=== PATIENT | male | born 1990 | race Caucasian/White ===

== ENCOUNTER 2018-01-10 14:23 | Emergency (ER) | payer OTHER ==
[~2018-01-10] VITALS: Ht 190.5 cm; Wt 77.1 kg
[~2018-01-10 14:23] MED LIST: ACET325 PO; ALBU90OI INH; ALBU90OI61 INH; AMOCLA875 PO; APIDRA; ASPI81CH PO; AZIT250 PO; Bactrim Ds Tab1 EACH PO; CEPH500 PO; Cleocin HCl150 MG PO; Cleocin HCl300 MG PO; DIPATR PO; EPIN.3I IM; FAMO40 PO; GUAI600T33 PO; HYDACE5325 PO; HYDHCL25 PO; HYDR1TAB94 PO; IBUP600 PO; INSDET100 SC; INSLI100I SC; INSLI100I SUBQ; INSLIS75I SC; INSR10I SC; INSUASPI SC; INSUASPI SUBQ; INSUL100I SC; INSULANI SC; INSULANI SUBQ; INSULANPEN; INSULANPEN SQ; METO10 PO; OXYACE5T PO; OXYC5 PO; PENVK500 PO; PRED10 PO; PROBIOTIC1 EACH PO; PSEU120ER PO; Pepcid20 MG PO; RXOXYACE PO; SULTRIDS PO; Ultram50 MG PO; Zofran Odt4 MG SL; Zofran Odt8 MG SL; [UNRECOGNIZED DRUG - OTHER] PO
[2018-01-10 15:13] LABS: BASOPHILS ABSOLUTE AUTO 0.03 K/mm3 (0.00-0.23); BASOPHILS PERCENT AUTO 0 % (0-2); EOSINOPHILS PERCENT AUTO 2 % (0-6); Hematocrit 42.4 % (37.0-53.0); Hemoglobin 13.7 g/dL (13.5-17.5); IMMATURE GRAN ABSOLUTE AUTO 0.02 K/mm3 (0.00-0.10); IMMATURE GRAN PERCENT AUTO 0 % (0-1); LYMPHOCYTES ABSOLUTE AUTO 2.62 K/mm3 (0.84-5.20); LYMPHOCYTES PERCENT AUTO 39 % (21-46); MONOCYTES PERCENT AUTO 5 % (4-13); Mean Corpuscular HGB Conc 32.3 g/dL (31.5-36.5); Mean Corpuscular Volume 87 fL (80-100); NEUTROPHILS ABSOLUTE AUTO 3.64 K/mm3 (1.96-9.15); NEUTROPHILS PERCENT AUTO 54 % (41-73); Platelet Count 320 K/mm3 (150-400); RDW Coefficient Variation 13.9 % (11.7-14.2); RDW Standard Deviation 44.2 fL (35.1-46.3); Red Blood Cell Count 4.89 M/mm3 (4.30-5.90); White Blood Cell Count 6.71 K/mm3 (4.00-11.30)
[2018-01-10 15:23] LABS: Alanine Aminotransfer (ALT/SGP 24 U/L (12-78); Albumin, Blood 3.6 g/dL (3.4-5.0); Albumin/Globulin Ratio 0.9 (0.8-1.8); Alk Phos 100 U/L (50-136); Anion Gap 7 mmol/L (6-16); Aspartate Aminotrans (AST/SGOT 15 U/L (12-37); Bilirubin, Total 0.5 mg/dL (0.1-1.0); Blood Urea Nitrogen 15 mg/dL (8-24); Bun/Creatinine Ratio 18.7 (12.0-20.0); CO2, Blood 27 mmol/L (21-32); Calcium, Blood 8.9 mg/dL (8.5-10.1); Chloride, Blood 106 mmol/L (98-108); Globulin, Blood 3.8 g/dL (2.2-4.0); Glomerular Filtration Rate >60 (60-); Glucose, Blood 261 mg/dL (70-99); Sodium, Blood 140 mmol/L (136-145); Total Protein, Blood 7.4 g/dL (6.4-8.2)
[2018-01-10] MEDS ORDERED: [UNRECOGNIZED DRUG - OTHER] SC (16:37)
== END 2018-01-10 16:49 | disposition home or self-care (01) ==
LOC: ER 14:23
PROVIDERS: Emergency Medicine
DX: E10.65 Type 1 diabetes mellitus with hyperglycemia (principal); R11.2 Nausea with vomiting, unspecified; I10 Essential (primary) hypertension; E10.43 Type 1 diabetes mellitus with diabetic autonomic (poly)neuropathy; K31.84 Gastroparesis; Z91.018 Allergy to other foods; Z88.8 Allergy status to other drugs, medicaments and biological substances; Z79.899 Other long term (current) drug therapy; Z79.82 Long term (current) use of aspirin; Z79.4 Long term (current) use of insulin; Z87.891 Personal history of nicotine dependence
CPT/HCPCS: 36415; 80053; 82947; 85025; 96361; 96374; 99283-25; J1815; J2405; J7030

== ENCOUNTER 2019-09-08 12:52 | Emergency (ER) | payer OTHER ==
[~2019-09-08] VITALS: Ht 193 cm; Wt 72.6 kg
[~2019-09-08 12:52] MED LIST changes: +COMPAZINE10 MG PO; +[UNRECOGNIZED DRUG - OTHER] SC
[2019-09-08 13:47] LABS: BASOPHILS ABSOLUTE AUTO 0.03 K/mm3 (0.00-0.23); BASOPHILS PERCENT AUTO 0 % (0-2); EOSINOPHILS ABSOLUTE AUTO 0.04 K/mm3 (0.00-0.68); EOSINOPHILS PERCENT AUTO 0 % (0-6); Hematocrit 43.6 % (37.0-53.0); Hemoglobin 14.1 g/dL (13.5-17.5); IMMATURE GRAN ABSOLUTE AUTO 0.04 K/mm3 (0.00-0.10); IMMATURE GRAN PERCENT AUTO 0 % (0-1); LYMPHOCYTES PERCENT AUTO 10 % (21-46); MONOCYTES ABSOLUTE AUTO 0.38 K/mm3 (0.16-1.47); MONOCYTES PERCENT AUTO 3 % (4-13); Mean Corpuscular HGB 28.7 pg (26.0-34.0); Mean Corpuscular HGB Conc 32.3 g/dL (31.5-36.5); Mean Corpuscular Volume 89 fL (80-100); NEUTROPHILS ABSOLUTE AUTO 10.75 K/mm3 (1.96-9.15); NEUTROPHILS PERCENT AUTO 87 % (41-73); Platelet Count 313 K/mm3 (150-400); RDW Coefficient Variation 12.9 % (11.7-14.2); RDW Standard Deviation 41.9 fL (35.1-46.3); Red Blood Cell Count 4.91 M/mm3 (4.30-5.90); White Blood Cell Count 12.44 K/mm3 (4.00-11.30)
[2019-09-08] MEDS ORDERED: BASAGLAR K100 UNIT/2 SC (13:54)
[2019-09-08 14:14] LABS: Alanine Aminotransfer (ALT/SGP 26 U/L (12-78); Albumin, Blood 4.7 g/dL (3.4-5.0); Albumin/Globulin Ratio 1.3 (0.8-1.8); Alk Phos 59 U/L (50-136); Anion Gap 11 mmol/L (6-16); Aspartate Aminotrans (AST/SGOT 24 U/L (12-37); Bilirubin, Total 0.8 mg/dL (0.1-1.0); Blood Urea Nitrogen 28 mg/dL (8-24); Bun/Creatinine Ratio 20.4 (12.0-20.0); CO2, Blood 22 mmol/L (21-32); Chloride, Blood 103 mmol/L (98-108); Creatinine, Blood 1.37 mg/dL (0.60-1.20); Globulin, Blood 3.7 g/dL (2.2-4.0); Glomerular Filtration Rate >60 (60-); Glucose, Blood 313 mg/dL (70-99); Potassium, Blood 4.2 mmol/L (3.5-5.5); Sodium, Blood 136 mmol/L (136-145); Total Protein, Blood 8.4 g/dL (6.4-8.2)
[2019-09-09] MEDS ORDERED: Pepcid20 MG PO (10:29)
[2019-09-09] MEDS ORDERED: Phenergan25 MG PR (10:29)
== END 2019-09-08 15:24 | disposition home or self-care (01) ==
LOC: ER 12:52
PROVIDERS: Physician Assistant
DX: R11.2 Nausea with vomiting, unspecified (principal); E10.43 Type 1 diabetes mellitus with diabetic autonomic (poly)neuropathy; K31.84 Gastroparesis; Z91.012 Allergy to eggs; Z91.018 Allergy to other foods; Z88.8 Allergy status to other drugs, medicaments and biological substances; Z87.891 Personal history of nicotine dependence
CPT/HCPCS: 36415; 80053; 83690; 85025; 96361; 96374; 96375; 99284-25; J0780; J1200; J7030

== ENCOUNTER 2019-09-09 05:53 | Emergency (ER) | payer OTHER ==
[~2019-09-09] VITALS: Ht 193 cm; Wt 68.0 kg
[~2019-09-09 05:53] MED LIST changes: +BASAGLAR K100 UNIT/2 SC
[2019-09-09 06:22] LABS: BASOPHILS ABSOLUTE AUTO 0.03 K/mm3 (0.00-0.23); BASOPHILS PERCENT AUTO 0 % (0-2); EOSINOPHILS PERCENT AUTO 0 % (0-6); Hematocrit 40.1 % (37.0-53.0); Hemoglobin 13.1 g/dL (13.5-17.5); IMMATURE GRAN ABSOLUTE AUTO 0.06 K/mm3 (0.00-0.10); IMMATURE GRAN PERCENT AUTO 0 % (0-1); LYMPHOCYTES ABSOLUTE AUTO 3.13 K/mm3 (0.84-5.20); LYMPHOCYTES PERCENT AUTO 19 % (21-46); MONOCYTES ABSOLUTE AUTO 1.15 K/mm3 (0.16-1.47); MONOCYTES PERCENT AUTO 7 % (4-13); Mean Corpuscular HGB 28.9 pg (26.0-34.0); Mean Corpuscular HGB Conc 32.7 g/dL (31.5-36.5); Mean Corpuscular Volume 89 fL (80-100); NEUTROPHILS ABSOLUTE AUTO 12.43 K/mm3 (1.96-9.15); NEUTROPHILS PERCENT AUTO 74 % (41-73); Platelet Count 345 K/mm3 (150-400); RDW Coefficient Variation 13.2 % (11.7-14.2); RDW Standard Deviation 42.6 fL (35.1-46.3); Red Blood Cell Count 4.53 M/mm3 (4.30-5.90)
[2019-09-09 06:41] LABS: Alanine Aminotransfer (ALT/SGP 31 U/L (12-78); Albumin, Blood 4.5 g/dL (3.4-5.0); Albumin/Globulin Ratio 1.2 (0.8-1.8); Alk Phos 55 U/L (50-136); Anion Gap 13 mmol/L (6-16); Aspartate Aminotrans (AST/SGOT 19 U/L (12-37); Bilirubin, Total 0.6 mg/dL (0.1-1.0); Blood Urea Nitrogen 36 mg/dL (8-24); Bun/Creatinine Ratio 25.5 (12.0-20.0); CO2, Blood 21 mmol/L (21-32); Calcium, Blood 9.8 mg/dL (8.5-10.1); Chloride, Blood 108 mmol/L (98-108); Creatinine, Blood 1.41 mg/dL (0.60-1.20); Globulin, Blood 3.7 g/dL (2.2-4.0); Glomerular Filtration Rate >60 (60-); Glucose, Blood 233 mg/dL (70-99); Sodium, Blood 142 mmol/L (136-145); Total Protein, Blood 8.2 g/dL (6.4-8.2)
[2019-09-09 06:48] LABS: Base Excess Venous -3.7 mmol/L; PCO2 Venous 29.3 mmHg (38-42); PO2 Venous 54.1 mmHg (38-42); pH Blood Venous 7.45 (7.34-7.37)
[2019-09-09 07:51] LABS: Source, Urine Voided
[2019-09-09 07:55] LABS: Bilirubin, Urine Neg (Neg); Blood, Urine 3+ (Neg); Glucose Qualitative, Urine 4+ (Neg); Ketones, Urine 4+ (Neg); Leukocyte Esterase, Urine Neg (Neg); Nitrite, Urine Neg (Neg); Protein, Urine 3+ (Neg); Urobilinogen, Urine NORM (Normal)
[2019-09-09 08:05] LABS: Appearance, Urine Hazy (Clear); Color, Urine Yellow (P-Yellow); White Blood Cells, Urine 0-2 /hpf (0-5)
[2019-09-09 08:06] LABS: Bacteria Few /hpf; Squamous Epithelial Cells Few /hpf (Few)
[2019-09-09 08:10] LABS: U Amphetamine Screen Not Detected; U Barbituate Screen Not Detected; U Benzodiazapine Screen Not Detected; U Buprenorphine Screen Not Detected; U Cannabinoids Screen DETECTED; U Cocaine Screen Not Detected; U Methadone Screen Not Detected; U Methamphetamine Screen Not Detected; U Opiates Screen Not Detected; U Oxycodone Screen Not Detected; U Phencyclidine Screen Not Detected; U Propoxyphene Screen Not Detected
[2019-09-09] MEDS ORDERED: Pepcid20 MG PO (10:29)
[2019-09-09] MEDS ORDERED: Phenergan25 MG PR (10:29)
[2019-09-10] MEDS ORDERED: TOPI25 PO (06:22)
[2019-09-10] MEDS ORDERED: METO10 PO (06:23)
[2019-09-10] MEDS ORDERED: OMEP20ER PO (06:24)
[2019-09-10] MEDS ORDERED: BASAGLAR K100 UNIT/2 SC (06:25)
[2019-09-10] MEDS ORDERED: INSULIN LI100 UNIT/1 (06:26)
== END 2019-09-09 10:42 | disposition home or self-care (01) ==
LOC: ER 05:53
PROVIDERS: Emergency Medicine
DX: E10.9 Type 1 diabetes mellitus without complications (principal); R11.10 Vomiting, unspecified; Z91.018 Allergy to other foods; Z91.012 Allergy to eggs; Z88.8 Allergy status to other drugs, medicaments and biological substances; I10 Essential (primary) hypertension; Z86.73 Personal history of transient ischemic attack (TIA), and cerebral infarction without residual deficits; Z87.891 Personal history of nicotine dependence
CPT/HCPCS: 36415; 71046; 80053; 81001; 82803; 82947; 83690; 85025; 87086; 96361; 96374; 96375; 96376; 99284-25; J0780; J1200; J1815; J2405; J2765; J7030

== ENCOUNTER 2019-09-10 06:03 | Emergency (ER) | payer OTHER ==
[~2019-09-10] VITALS: Ht 193 cm; Wt 70.3 kg
[~2019-09-10 06:03] MED LIST changes: +Phenergan25 MG PR
[2019-09-10] MEDS ORDERED: TOPI25 PO (06:22)
[2019-09-10] MEDS ORDERED: METO10 PO (06:23)
[2019-09-10] MEDS ORDERED: OMEP20ER PO (06:24)
[2019-09-10] MEDS ORDERED: BASAGLAR K100 UNIT/2 SC (06:25)
[2019-09-10] MEDS ORDERED: INSULIN LI100 UNIT/1 (06:26)
[2019-09-10 06:49] LABS: BASOPHILS ABSOLUTE AUTO 0.03 K/mm3 (0.00-0.23); BASOPHILS PERCENT AUTO 0 % (0-2); EOSINOPHILS PERCENT AUTO 0 % (0-6); Hematocrit 37.8 % (37.0-53.0); Hemoglobin 12.5 g/dL (13.5-17.5); IMMATURE GRAN ABSOLUTE AUTO 0.03 K/mm3 (0.00-0.10); IMMATURE GRAN PERCENT AUTO 0 % (0-1); LYMPHOCYTES ABSOLUTE AUTO 1.89 K/mm3 (0.84-5.20); LYMPHOCYTES PERCENT AUTO 15 % (21-46); MONOCYTES PERCENT AUTO 5 % (4-13); Mean Corpuscular HGB 28.9 pg (26.0-34.0); Mean Corpuscular HGB Conc 33.1 g/dL (31.5-36.5); Mean Corpuscular Volume 88 fL (80-100); Mean Platelet Volume 8.9 fL (9.1-12.4); NEUTROPHILS ABSOLUTE AUTO 9.74 K/mm3 (1.96-9.15); NEUTROPHILS PERCENT AUTO 79 % (41-73); Platelet Count 290 K/mm3 (150-400); RDW Standard Deviation 41.8 fL (35.1-46.3); Red Blood Cell Count 4.32 M/mm3 (4.30-5.90); White Blood Cell Count 12.29 K/mm3 (4.00-11.30)
[2019-09-10 06:50] LABS: Base Excess Venous -1.9 mmol/L; Bicarbonate Venous 23.4 mmol/L (24.0-30.0); PCO2 Venous 30.7 mmHg (38-42); PO2 Venous 58.8 mmHg (38-42); pH Blood Venous 7.46 (7.34-7.37)
[2019-09-10 07:21] LABS: Alanine Aminotransfer (ALT/SGP 37 U/L (12-78); Albumin/Globulin Ratio 1.3 (0.8-1.8); Alk Phos 48 U/L (50-136); Anion Gap 13 mmol/L (6-16); Aspartate Aminotrans (AST/SGOT 26 U/L (12-37); Beta-hydroxybutyrate 30.6 mg/dL (0.2-2.8); Bilirubin, Total 0.7 mg/dL (0.1-1.0); Blood Urea Nitrogen 24 mg/dL (8-24); Bun/Creatinine Ratio 20.9 (12.0-20.0); CO2, Blood 21 mmol/L (21-32); Chloride, Blood 106 mmol/L (98-108); Creatinine, Blood 1.15 mg/dL (0.60-1.20); Globulin, Blood 3.1 g/dL (2.2-4.0); Glomerular Filtration Rate >60 (60-); Glucose, Blood 231 mg/dL (70-99); Potassium, Blood 3.5 mmol/L (3.5-5.5); Sodium, Blood 140 mmol/L (136-145); Total Protein, Blood 7.1 g/dL (6.4-8.2)
== END 2019-09-10 08:47 | disposition home or self-care (01) ==
LOC: ER 06:03
PROVIDERS: Emergency Medicine
DX: R11.15 Cyclical vomiting syndrome unrelated to migraine (principal); E10.43 Type 1 diabetes mellitus with diabetic autonomic (poly)neuropathy; K31.84 Gastroparesis; I10 Essential (primary) hypertension; Z91.012 Allergy to eggs; Z91.018 Allergy to other foods; Z88.8 Allergy status to other drugs, medicaments and biological substances; Z79.899 Other long term (current) drug therapy; Z86.73 Personal history of transient ischemic attack (TIA), and cerebral infarction without residual deficits
CPT/HCPCS: 80053; 82010; 82803; 85025; 93005; 93010; 96361; 96374; 96375; 96376; 99284-25; J1200; J1630; J2405; J7030

== ENCOUNTER 2021-01-26 16:58 | Emergency (ER) | payer OTHER ==
[~2021-01-26] VITALS: Ht 193 cm; Wt 68.0 kg
[~2021-01-26 16:58] MED LIST changes: +INSULIN LI100 UNIT/1; +OMEP20ER PO; +TOPI25 PO
[2021-01-26 17:33] LABS: BASOPHILS ABSOLUTE AUTO 0.04 K/mm3 (0.00-0.23); BASOPHILS PERCENT AUTO 1 % (0-2); EOSINOPHILS PERCENT AUTO 5 % (0-6); Hematocrit 37.8 % (37.0-53.0); Hemoglobin 12.7 g/dL (13.5-17.5); IMMATURE GRAN ABSOLUTE AUTO 0.02 K/mm3 (0.00-0.10); IMMATURE GRAN PERCENT AUTO 0 % (0-1); LYMPHOCYTES ABSOLUTE AUTO 2.89 K/mm3 (0.84-5.20); LYMPHOCYTES PERCENT AUTO 34 % (21-46); MONOCYTES ABSOLUTE AUTO 0.59 K/mm3 (0.16-1.47); MONOCYTES PERCENT AUTO 7 % (4-13); Mean Corpuscular HGB 29.9 pg (26.0-34.0); Mean Corpuscular HGB Conc 33.6 g/dL (31.5-36.5); Mean Corpuscular Volume 89 fL (80-100); Mean Platelet Volume 8.3 fL (9.1-12.4); NEUTROPHILS ABSOLUTE AUTO 4.49 K/mm3 (1.96-9.15); NEUTROPHILS PERCENT AUTO 53 % (41-73); Platelet Count 302 K/mm3 (150-400); RDW Standard Deviation 42.4 fL (35.1-46.3); Red Blood Cell Count 4.25 M/mm3 (4.30-5.90); White Blood Cell Count 8.43 K/mm3 (4.00-11.30)
[2021-01-26 17:59] LABS: Alanine Aminotransfer (ALT/SGP 16 U/L (12-78); Albumin, Blood 3.6 g/dL (3.4-5.0); Albumin/Globulin Ratio 1.1 (0.8-1.8); Alk Phos 66 U/L (50-136); Anion Gap 5 mmol/L (6-16); Aspartate Aminotrans (AST/SGOT 13 U/L (12-37); Bilirubin, Total 0.3 mg/dL (0.1-1.0); Blood Urea Nitrogen 24 mg/dL (8-24); Bun/Creatinine Ratio 19.2 (12.0-20.0); CO2, Blood 26 mmol/L (21-32); Calcium, Blood 8.8 mg/dL (8.5-10.1); Chloride, Blood 111 mmol/L (98-108); Creatinine, Blood 1.25 mg/dL (0.60-1.20); Globulin, Blood 3.3 g/dL (2.2-4.0); Glomerular Filtration Rate >60 (60-); Glucose, Blood 93 mg/dL (70-99); Potassium, Blood 3.7 mmol/L (3.5-5.5); Sodium, Blood 142 mmol/L (136-145); Total Protein, Blood 6.9 g/dL (6.4-8.2)
[2021-01-26 20:37] LABS: Source, Urine Voided
[2021-01-26 20:45] LABS: Bilirubin, Urine Neg (Neg); Blood, Urine 2+ (Neg); Glucose Qualitative, Urine Neg (Neg); Ketones, Urine Neg (Neg); Leukocyte Esterase, Urine Neg (Neg); Nitrite, Urine Neg (Neg); Protein, Urine 2+ (Neg); Specific Gravity, Urine 1.025 (1.003-1.022); Urobilinogen, Urine NORM (Normal)
[2021-01-26 20:52] LABS: Appearance, Urine Clear (Clear); Color, Urine Yellow (P-Yellow)
[2021-01-26 20:55] LABS: Amorphous Light (0-Heavy); Bacteria Rare /hpf; Mucus Light (0-Heavy); Red Blood Cells, Urine 0-2 /hpf (0-2); Squamous Epithelial Cells Rare /hpf (Few); White Blood Cells, Urine Not Seen /hpf (0-5)
[2021-01-27] MEDS ORDERED: ARIPIPRAZOLE30 MG (14:44)
[2021-01-27] MEDS ORDERED: METO10SY (14:44)
[2021-01-27] MEDS ORDERED: BUPROPION HCL200 M1 (14:45)
[2021-01-27] MEDS ORDERED: ONDA4ODT (14:45)
[2021-01-27] MEDS ORDERED: BACLOFEN5 M1 (14:45)
== END 2021-01-26 21:40 | disposition home or self-care (01) ==
LOC: ER 16:58
PROVIDERS: Emergency Medicine; Physician Assistant
DX: R20.0 Anesthesia of skin (principal); R20.2 Paresthesia of skin; I10 Essential (primary) hypertension; E10.9 Type 1 diabetes mellitus without complications; Z91.012 Allergy to eggs; Z91.018 Allergy to other foods; Z88.8 Allergy status to other drugs, medicaments and biological substances; Z79.899 Other long term (current) drug therapy; Z79.4 Long term (current) use of insulin; Z86.73 Personal history of transient ischemic attack (TIA), and cerebral infarction without residual deficits
CPT/HCPCS: 70450; 80053; 81001; 82947; 85025; 99284-25

== ENCOUNTER 2021-08-03 15:01 | Emergency (ER) | payer OTHER ==
[~2021-08-03] VITALS: Ht 193 cm; Wt 67.6 kg
[~2021-08-03 15:01] MED LIST changes: +ARIPIPRAZOLE30 MG; +BACLOFEN5 M1; +BUPROPION HCL200 M1; +METO10SY; +ONDA4ODT
[2021-08-03] MEDS ORDERED: LIDO700A20 TOP (16:32)
[2021-08-03] MEDS ORDERED: Robaxin750 MG PO (16:32)
== END 2021-08-03 16:40 | disposition home or self-care (01) ==
LOC: ER 15:01
DX: M25.511 Pain in right shoulder (principal); E10.9 Type 1 diabetes mellitus without complications; I10 Essential (primary) hypertension; Z86.73 Personal history of transient ischemic attack (TIA), and cerebral infarction without residual deficits; Z91.012 Allergy to eggs; Z91.018 Allergy to other foods; Z88.8 Allergy status to other drugs, medicaments and biological substances; Z79.899 Other long term (current) drug therapy; Z79.4 Long term (current) use of insulin
CPT/HCPCS: 73030; 99283-25; A9270

== ENCOUNTER → 2021-08-18 | Outpatient (CLI) | payer OTHER ==
[~2021-08-18] MED LIST changes: +LIDO700A20 TOP; +Robaxin750 MG PO
== END | disposition home or self-care (01) ==
LOC: LAB SHORT 11:00 → LAB 11:00
DX: E10.8 Type 1 diabetes mellitus with unspecified complications (principal)
CPT/HCPCS: 82043

== ENCOUNTER → 2021-12-23 | Outpatient (CLI) | payer OTHER ==
[~2021-12-23] MED LIST changes: +DULOXETINE HCL60 M1 PO; +LISINOPRIL2.5 MG PO; +TOPI50 PO
== END | disposition home or self-care (01) ==
LOC: LAB 13:19 → LAB SHORT 13:19
DX: G40.909 Epilepsy, unspecified, not intractable, without status epilepticus (principal)
CPT/HCPCS: 80201

== ENCOUNTER 2021-12-24 16:18 | Emergency (ER) | payer OTHER ==
[~2021-12-24] VITALS: Ht 190.5 cm; Wt 69.8 kg
[~2021-12-24 16:18] MED LIST changes: -DULOXETINE HCL60 M1 PO; -LISINOPRIL2.5 MG PO; -TOPI50 PO
[2021-12-24] MEDS ORDERED: LISINOPRIL2.5 MG PO (16:35)
[2021-12-24] MEDS ORDERED: TOPI50 PO ×2 (16:36)
[2021-12-24] MEDS ORDERED: DULOXETINE HCL60 M1 PO (16:37)
[2021-12-24 16:43] LABS: BASOPHILS ABSOLUTE AUTO 0.03 K/mm3 (0.00-0.23); BASOPHILS PERCENT AUTO 0 % (0-2); EOSINOPHILS PERCENT AUTO 1 % (0-6); Hematocrit 41.2 % (37.0-53.0); Hemoglobin 13.4 g/dL (13.5-17.5); IMMATURE GRAN ABSOLUTE AUTO 0.03 K/mm3 (0.00-0.10); IMMATURE GRAN PERCENT AUTO 0 % (0-1); LYMPHOCYTES ABSOLUTE AUTO 1.84 K/mm3 (0.84-5.20); LYMPHOCYTES PERCENT AUTO 23 % (21-46); MONOCYTES ABSOLUTE AUTO 0.47 K/mm3 (0.16-1.47); MONOCYTES PERCENT AUTO 6 % (4-13); Mean Corpuscular HGB 29.4 pg (26.0-34.0); Mean Corpuscular HGB Conc 32.5 g/dL (31.5-36.5); Mean Corpuscular Volume 90 fL (80-100); Mean Platelet Volume 8.8 fL (9.1-12.4); NEUTROPHILS ABSOLUTE AUTO 5.45 K/mm3 (1.96-9.15); NEUTROPHILS PERCENT AUTO 69 % (41-73); Platelet Count 247 K/mm3 (150-400); RDW Coefficient Variation 13.3 % (11.7-14.2); RDW Standard Deviation 44.2 fL (35.1-46.3); Red Blood Cell Count 4.56 M/mm3 (4.30-5.90); White Blood Cell Count 7.92 K/mm3 (4.00-11.30)
[2021-12-24 17:12] LABS: Magnesium, Blood 1.8 mg/dL (1.6-2.4)
[2021-12-24 17:15] LABS: Albumin, Blood 4.1 g/dL (3.4-5.0); Albumin/Globulin Ratio 1.4 (0.8-1.8); Bilirubin, Total 0.5 mg/dL (0.1-1.0); Bun/Creatinine Ratio 15.2 (12.0-20.0); Calcium, Blood 9.4 mg/dL (8.5-10.1); Creatinine, Blood 1.38 mg/dL (0.60-1.20); Globulin, Blood 2.9 g/dL (2.2-4.0); Potassium, Blood 4.1 mmol/L (3.5-5.5); Thyroid Stimulating Hormone 0.878 uIU/mL (0.360-4.800)
[2021-12-24 18:14] LABS: Source, Urine Clean Catch
[2021-12-24 18:18] LABS: Bilirubin, Urine Neg (Neg); Blood, Urine Neg (Neg); Color, Urine Yellow (P-Yellow); Glucose Qualitative, Urine Neg (Neg); Ketones, Urine 2+ (Neg); Leukocyte Esterase, Urine Neg (Neg); Nitrite, Urine Neg (Neg); Protein, Urine 2+ (Neg); Specific Gravity, Urine 1.025 (1.003-1.022); Urobilinogen, Urine NORM (Normal)
[2021-12-24 19:40] LABS: U Amphetamine Screen Not Detected; U Barbituate Screen Not Detected; U Benzodiazapine Screen Not Detected; U Buprenorphine Screen Not Detected; U Cannabinoids Screen DETECTED; U Cocaine Screen Not Detected; U Methadone Screen Not Detected; U Methamphetamine Screen Not Detected; U Opiates Screen Not Detected; U Oxycodone Screen Not Detected; U Phencyclidine Screen Not Detected; U Propoxyphene Screen Not Detected
[2021-12-24 19:45] LABS: Appearance, Urine Hazy (Clear); Mucus Heavy (0-Heavy)
[2021-12-24 19:46] LABS: Bacteria Mod /hpf; Red Blood Cells, Urine 0-2 /hpf (0-2); White Blood Cells, Urine 0-2 /hpf (0-5)
[2021-12-24 19:47] LABS: Amorphous Light (0-Heavy); Calcium Oxalate Crystals Rare /hpf; Squamous Epithelial Cells Rare /hpf (Few)
== END 2021-12-24 20:26 | disposition home or self-care (01) ==
LOC: ER 16:18
PROVIDERS: Student in an Organized Health Care Education/Training Program
DX: R56.9 Unspecified convulsions (principal); R11.10 Vomiting, unspecified; E10.9 Type 1 diabetes mellitus without complications; I10 Essential (primary) hypertension; Z91.012 Allergy to eggs; Z91.018 Allergy to other foods; Z79.4 Long term (current) use of insulin; Z79.899 Other long term (current) drug therapy; Z86.73 Personal history of transient ischemic attack (TIA), and cerebral infarction without residual deficits
CPT/HCPCS: 80053; 81001; 83735; 84443; 85025; 93005; 93010; G0480

== ENCOUNTER → 2022-04-13 | Outpatient (CLI) | payer OTHER ==
[~2022-04-13] MED LIST changes: +DULOXETINE HCL60 M1 PO; +LISINOPRIL2.5 MG PO; +TOPI50 PO
== END | disposition home or self-care (01) ==
LOC: LAB SHORT 12:39
DX: L03.113 Cellulitis of right upper limb (principal)
CPT/HCPCS: 87070; 87075; 87077; 87147; 87186; 87205

== ENCOUNTER 2023-03-04 07:12 | Observation (INO) | payer OTHER ==
[~2023-03-04] VITALS: Ht 190.5 cm; Wt 75.6 kg
[~2023-03-04 07:12] MED LIST changes: +HUMALOG KW100 UNIT/1 SC; -INSULIN LI100 UNIT/1; -ONDA4ODT; +ONDA4ODT SL
[2023-03-04 07:56] LABS: BASOPHILS ABSOLUTE AUTO 0.03 K/mm3 (0.00-0.23); BASOPHILS PERCENT AUTO 0 % (0-2); EOSINOPHILS PERCENT AUTO 0 % (0-6); Hematocrit 38.9 % (37.0-53.0); Hemoglobin 13.4 g/dL (13.5-17.5); IMMATURE GRAN ABSOLUTE AUTO 0.05 K/mm3 (0.00-0.10); IMMATURE GRAN PERCENT AUTO 0 % (0-1); LYMPHOCYTES ABSOLUTE AUTO 1.71 K/mm3 (0.84-5.20); LYMPHOCYTES PERCENT AUTO 11 % (21-46); MONOCYTES ABSOLUTE AUTO 0.89 K/mm3 (0.16-1.47); MONOCYTES PERCENT AUTO 6 % (4-13); Mean Corpuscular HGB 29.8 pg (26.0-34.0); Mean Corpuscular HGB Conc 34.4 g/dL (31.5-36.5); Mean Corpuscular Volume 86 fL (80-100); Mean Platelet Volume 8.6 fL (9.1-12.4); NEUTROPHILS ABSOLUTE AUTO 12.68 K/mm3 (1.96-9.15); NEUTROPHILS PERCENT AUTO 83 % (41-73); Platelet Count 394 K/mm3 (150-400); RDW Coefficient Variation 13.1 % (11.7-14.2); White Blood Cell Count 15.36 K/mm3 (4.00-11.30)
[2023-03-04 08:17] LABS: Magnesium, Blood 2.1 mg/dL (1.6-2.4)
[2023-03-04 09:09] LABS: Alanine Aminotransfer (ALT/SGP 35 U/L (12-78); Albumin, Blood 3.9 g/dL (3.4-5.0); Alk Phos 81 U/L (50-136); Anion Gap 5 mmol/L (6-16); Aspartate Aminotrans (AST/SGOT 16 U/L (12-37); Bilirubin, Direct <0.1 mg/dL (0.0-0.3); Bilirubin, Indirect Unable to Calculate mg/dL (0.1-0.7); Bilirubin, Total 0.4 mg/dL (0.1-1.0); Blood Urea Nitrogen 42 mg/dL (8-24); Bun/Creatinine Ratio 18.8 (12.0-20.0); CO2, Blood 29 mmol/L (21-32); Calcium, Blood 9.7 mg/dL (8.5-10.1); Chloride, Blood 103 mmol/L (98-108); Creatinine, Blood 2.24 mg/dL (0.60-1.20); Globulin, Blood 3.8 g/dL (2.2-4.0); Glomerular Filtration Rate 39 (60-); Glucose, Blood 107 mg/dL (70-99); Potassium, Blood 4.5 mmol/L (3.5-5.5); Sodium, Blood 137 mmol/L (136-145); Total Protein, Blood 7.7 g/dL (6.4-8.2)
[2023-03-04 10:55] LABS: Calcium, Ionized (POC) 1.18 mmol/L (1.10-1.46); Chloride (POC) 102 mmol/L (98-108); Creatinine (POC) 2.2 mg/dL (0.8-1.3); Glucose (ISTAT POC) 192 mg/dL (70-99); Hemoglobin (POC) 12.2 g/dL (13.5-17.5); Sodium (POC) 136 mmol/L (135-148); Total CO2 (POC) 27 mmol/L (21-32)
[2023-03-04] MEDS ORDERED: MUPIROCIN2210 TOP (11:02)
[2023-03-04] MEDS ORDERED: LAMOTRIGINE100 M1 PO (11:02)
[2023-03-04] MEDS ORDERED: SULFAMETHOXAZO1 EAC1 PO (11:03)
[2023-03-04] MEDS ORDERED: CEPH500 PO (11:04)
[2023-03-04] MEDS ORDERED: OMEP20ER PO (11:05)
[2023-03-04] MEDS ORDERED: LURASIDONE HCL60 MG PO (11:05)
[2023-03-04] MEDS ORDERED: TRAZ100 PO (11:06)
[2023-03-04] MEDS ORDERED: METO5A PO (11:06)
[2023-03-04] MEDS ORDERED: EPINEPHRIN0.3 MG/0.1 IM (11:07)
[2023-03-04] MEDS ORDERED: BACL20 PO (14:56)
[2023-03-04] MEDS ORDERED: DULO30 PO (15:02)
[2023-03-04] MEDS ORDERED: TOUJEO SOL300 UNIT/2 SC (15:04)
[2023-03-04] MEDS ORDERED: ALBU90OI INH (15:12)
[2023-03-04 15:28] VITALS: BP 146/87
--- NOTE | 2023-03-04 16:00 | NUR ---
PT ARRIVED TO ROOM AT 1445. CONFLICT OCCURED BETWEEN ASSIGNED RN AND PT. THERAUPETIC COMMUNICATION PROVIDED BY THIS RN AND PT ABLE TO CALM HIMSELF AND ADMISSION WAS ABLE TO BE COMPLETED. SERVICE DOG PRESENT WITH PT REPORTING HE WILL BE PROVIDING TO DOGS PERSONAL NEEDS. INDEPENDENT IN ROOM. STATES HE VOIDED PRIOR COMING TO FLOOR. PT INSISTED HE DIDN'T WANT HIS MEDS REMOVED FROM HIS SURROUNDINGS DUE TO POTENTIAL LOSS. STATES HE HAS PHYSICAL PAIN WHEN ROUTINES ARE NOT CONSISTANT DUE TO HIS AUTISM. STATES HE SMOKES BUT DOESN'T HAVE ANY SOURCES OF IGNITION IN HIS ROOM. EXPLAINED SMOKING POLICY TO PT CLEARLY. AGREED TO ALLOW PT TO KEEP HIS MEDS IN HIS ROOM. PT REPORTED HE HAS FALLEN SEVERAL TIMES DUE TO FEELING DIZZY. ASKED IF HE WOULD PLEASE PUSH A W/C WITH HIM WHEN HE TAKES HIS DOG OUT FOR A WALK FOR SAFETY. PT AGREEABLE.
--- NOTE | 2023-03-04 19:25 | NUR ---
SHIFT SUMMARY PT HAS BEEN AGREEABLE FOR THE REMAINING DAY. DID TAKE HIS DOG OUTSIDE ONCE TODAY. CLARIFIED MEDS WITH PT, MD, AND RP TO KEEP MEDS CONSISTANT MUCH POSSIBLE. REPORT GIVEN TO ONCOMING SHIFT.
[2023-03-04 20:53] VITALS: BP 158/95
[2023-03-05 03:07] VITALS: BP 134/80
--- NOTE | 2023-03-05 05:16 | NUR ---
SHIFT SUMMARY 33 YR M ADMITTED ON 03/04/23 FOR ARF. FULL CODE. PT BECAME UPSET AT 2300 MED PASS BECAUSE HE FELT THAT ALL OF HIS MEDS HAD NOT BEEN REVIEWED AND AVAILABLE TO HIM. RN TRIED TO EXPLAIN THE MEDS TO HIM BUT HE BECAME AGITATED AND AGRESSIVELY ARGUMENTATIVE WITH HER. CHARGE NURSE WAS CALLED TO SPEAK W/ PT AND DO MED PASS AND EVENTUALLY HE CALMED DOWN AND RN WAS ABLE TO RESUME CARE. 2300 CBG WAS 44 SO PT WAS GIVEN APPLE JUICE AND PUDDING. AT 0015 CBG HAD COME UP TO 113. AT 0400 PT STATED TO RN THAT HE THOUGHT HIS BLOOD SUGAR WAS TOO HIGH BECAUSE HIS MOUTH WAS DRY. CBG DONE AND WAS LOW AT 57. APPLE JUICE AND A HALF SNADWICH WERE GIVEN AND AT 0500 CBG WAS 88. WILL CONTINUE TO MONITOR.
[2023-03-05 05:52] LABS: BASOPHILS ABSOLUTE AUTO 0.05 K/mm3 (0.00-0.23); BASOPHILS PERCENT AUTO 1 % (0-2); EOSINOPHILS ABSOLUTE AUTO 0.17 K/mm3 (0.00-0.68); EOSINOPHILS PERCENT AUTO 2 % (0-6); Hematocrit 35.6 % (37.0-53.0); Hemoglobin 11.4 g/dL (13.5-17.5); IMMATURE GRAN ABSOLUTE AUTO 0.03 K/mm3 (0.00-0.10); IMMATURE GRAN PERCENT AUTO 0 % (0-1); LYMPHOCYTES ABSOLUTE AUTO 2.79 K/mm3 (0.84-5.20); LYMPHOCYTES PERCENT AUTO 29 % (21-46); MONOCYTES ABSOLUTE AUTO 0.78 K/mm3 (0.16-1.47); MONOCYTES PERCENT AUTO 8 % (4-13); Mean Corpuscular HGB 29.3 pg (26.0-34.0); Mean Platelet Volume 8.7 fL (9.1-12.4); NEUTROPHILS ABSOLUTE AUTO 5.84 K/mm3 (1.96-9.15); NEUTROPHILS PERCENT AUTO 60 % (41-73); Platelet Count 338 K/mm3 (150-400); RDW Coefficient Variation 13.2 % (11.7-14.2); RDW Standard Deviation 43.7 fL (35.1-46.3); Red Blood Cell Count 3.89 M/mm3 (4.30-5.90); White Blood Cell Count 9.66 K/mm3 (4.00-11.30)
[2023-03-05 05:57] LABS: Mean Corpuscular Volume 92 fL (80-100)
[2023-03-05 06:20] LABS: Calcium, Blood 9.1 mg/dL (8.5-10.1); Creatinine, Blood 1.6 mg/dL (0.60-1.20); Potassium, Blood 4.3 mmol/L (3.5-5.5)
[2023-03-05 08:08] VITALS: BP 114/67
[2023-03-05] MEDS ORDERED: Acetaminophen650 M1 PO (13:15)
[2023-03-05] MEDS ORDERED: TOPI100 PO (13:16)
[2023-03-05] MEDS ORDERED: TOPI50 PO (13:16)
[2023-03-05] MEDS ORDERED: BUPR100ER PO (13:17)
[2023-03-05] MEDS ORDERED: ABILIFY MYCITE5 M2 PO (13:17)
--- NOTE | 2023-03-05 16:27 | NUR ---
PT DISCHARGED 1430 WITH DC INSTRUCTIONS, DC'D WITH DOG. AWARE HE IS TO GENERAL AGENT RX ABX AND COMPLETE ABX COARSE
== END 2023-03-05 14:30 | disposition home or self-care (01) ==
LOC: ER 07:12 → MEDS 07:13 → ENPENDDIS 03-05 11:57 → MEDS 03-05 14:30
PROVIDERS: Student in an Organized Health Care Education/Training Program; ADMIT Internal Medicine
DX: N17.9 Acute kidney failure, unspecified (principal); E10.43 Type 1 diabetes mellitus with diabetic autonomic (poly)neuropathy; E10.22 Type 1 diabetes mellitus with diabetic chronic kidney disease; I12.9 Hypertensive chronic kidney disease with stage 1 through stage 4 chronic kidney disease, or unspecified chronic kidney disease; K31.84 Gastroparesis; N18.30 Chronic kidney disease, stage 3 unspecified; F43.10 Post-traumatic stress disorder, unspecified; F32.A Depression, unspecified; G89.29 Other chronic pain; M54.40 Lumbago with sciatica, unspecified side; F12.99 Cannabis use, unspecified with unspecified cannabis-induced disorder; Z79.4 Long term (current) use of insulin
CPT/HCPCS: 36415; 51798; 80047; 80048; 80076; 82947; 83690; 83735; 85014; 85025; 93005; 93010; 94760; 96361; 96365; 96367; 96374; 96375; 96376; 99285-25; A9270; G0378; J0696; J1790; J1815; J2405; J7030; J7120

== ENCOUNTER → 2023-03-14 | Outpatient (CLI) | payer OTHER ==
[~2023-03-14] MED LIST changes: +ABILIFY MYCITE5 M2 PO; +Acetaminophen650 M1 PO; +BACL20 PO; +BUPR100ER PO; +DULO30 PO; +EPINEPHRIN0.3 MG/0.1 IM; +LAMOTRIGINE100 M1 PO; +LURASIDONE HCL60 MG PO; +METO5A PO; +MUPIROCIN2210 TOP; +SULFAMETHOXAZO1 EAC1 PO; +TOPI100 PO; +TOUJEO SOL300 UNIT/2 SC; +TRAZ100 PO
[2023-03-14 19:58] LABS: BASOPHILS ABSOLUTE AUTO 0.06 K/mm3 (0.00-0.23); BASOPHILS PERCENT AUTO 1 % (0-2); EOSINOPHILS ABSOLUTE AUTO 0.73 K/mm3 (0.00-0.68); EOSINOPHILS PERCENT AUTO 9 % (0-6); Hemoglobin 12.3 g/dL (13.5-17.5); IMMATURE GRAN ABSOLUTE AUTO 0.04 K/mm3 (0.00-0.10); IMMATURE GRAN PERCENT AUTO 1 % (0-1); LYMPHOCYTES ABSOLUTE AUTO 2.39 K/mm3 (0.84-5.20); LYMPHOCYTES PERCENT AUTO 30 % (21-46); MONOCYTES ABSOLUTE AUTO 0.53 K/mm3 (0.16-1.47); MONOCYTES PERCENT AUTO 7 % (4-13); Mean Corpuscular HGB 29.6 pg (26.0-34.0); Mean Corpuscular HGB Conc 32.4 g/dL (31.5-36.5); Mean Corpuscular Volume 92 fL (80-100); Mean Platelet Volume 8.6 fL (9.1-12.4); NEUTROPHILS PERCENT AUTO 52 % (41-73); Platelet Count 381 K/mm3 (150-400); RDW Coefficient Variation 13.4 % (11.7-14.2); RDW Standard Deviation 44.1 fL (35.1-46.3); Red Blood Cell Count 4.15 M/mm3 (4.30-5.90); White Blood Cell Count 7.85 K/mm3 (4.00-11.30)
[2023-03-14 23:35] LABS: Albumin, Blood 3.8 g/dL (3.4-5.0); Albumin/Globulin Ratio 1.1 (0.8-1.8); Bilirubin, Total 0.2 mg/dL (0.1-1.0); Bun/Creatinine Ratio 20.6 (12.0-20.0); Calcium, Blood 9.1 mg/dL (8.5-10.1); Creatinine, Blood 1.36 mg/dL (0.60-1.20); Globulin, Blood 3.4 g/dL (2.2-4.0); Potassium, Blood 4.1 mmol/L (3.5-5.5); Thyroid Stimulating Hormone 2.47 uIU/mL (0.360-4.800); Total Protein, Blood 7.2 g/dL (6.4-8.2)
[2023-03-18 11:22] LABS: HEMOGLOBIN A1C 7.6 % (4.8-5.6)
== END ==
LOC: LAB 19:43 → LAB SHORT 19:43
PROVIDERS: Family Medicine
DX: R11.2 Nausea with vomiting, unspecified (principal)
CPT/HCPCS: 80053; 84443; 85025

== ENCOUNTER 2023-03-29 12:14 | Emergency (ER) | payer OTHER ==
[~2023-03-29] VITALS: Ht 190.5 cm; Wt 77.1 kg
[2023-03-29] MEDS ORDERED: BACL20 PO (12:38)
[2023-03-29] MEDS ORDERED: INSULIN LI100 UNIT/6 SC (12:40)
[2023-03-29] MEDS ORDERED: OMEP20ER PO (12:41)
[2023-03-29] MEDS ORDERED: TRAZ100 PO (12:41)
[2023-03-29] MEDS ORDERED: METOPROLOL SUCC25 MG PO (12:42)
[2023-03-29 13:52] LABS: BASOPHILS ABSOLUTE AUTO 0.04 K/mm3 (0.00-0.23); BASOPHILS PERCENT AUTO 1 % (0-2); EOSINOPHILS ABSOLUTE AUTO 0.56 K/mm3 (0.00-0.68); EOSINOPHILS PERCENT AUTO 8 % (0-6); Hematocrit 34.7 % (37.0-53.0); Hemoglobin 11.4 g/dL (13.5-17.5); IMMATURE GRAN ABSOLUTE AUTO 0.02 K/mm3 (0.00-0.10); IMMATURE GRAN PERCENT AUTO 0 % (0-1); LYMPHOCYTES ABSOLUTE AUTO 1.21 K/mm3 (0.84-5.20); LYMPHOCYTES PERCENT AUTO 16 % (21-46); MONOCYTES ABSOLUTE AUTO 0.55 K/mm3 (0.16-1.47); MONOCYTES PERCENT AUTO 7 % (4-13); Mean Corpuscular HGB 29.9 pg (26.0-34.0); Mean Corpuscular HGB Conc 32.9 g/dL (31.5-36.5); Mean Corpuscular Volume 91 fL (80-100); Mean Platelet Volume 8.4 fL (9.1-12.4); NEUTROPHILS ABSOLUTE AUTO 5.09 K/mm3 (1.96-9.15); NEUTROPHILS PERCENT AUTO 68 % (41-73); Platelet Count 325 K/mm3 (150-400); RDW Coefficient Variation 13.7 % (11.7-14.2); RDW Standard Deviation 45.8 fL (35.1-46.3); Red Blood Cell Count 3.81 M/mm3 (4.30-5.90); White Blood Cell Count 7.47 K/mm3 (4.00-11.30)
[2023-03-29 14:07] VITALS: BP 125/86
[2023-03-29 14:20] LABS: Albumin, Blood 3.2 g/dL (3.4-5.0); Albumin/Globulin Ratio 0.9 (0.8-1.8); Bilirubin, Total 0.3 mg/dL (0.1-1.0); Bun/Creatinine Ratio 19.7 (12.0-20.0); Calcium, Blood 8.6 mg/dL (8.5-10.1); Creatinine, Blood 1.47 mg/dL (0.60-1.20); Globulin, Blood 3.4 g/dL (2.2-4.0); Potassium, Blood 4.4 mmol/L (3.5-5.5); Total Protein, Blood 6.6 g/dL (6.4-8.2)
[2023-03-29 14:21] LABS: Source, Urine Straight Cath
[2023-03-29 14:31] LABS: Appearance, Urine Clear (Clear); Bilirubin, Urine Neg (Neg); Blood, Urine 3+ (Neg); Color, Urine Yellow (P-Yellow); Glucose Qualitative, Urine 4+ (Neg); Ketones, Urine Neg (Neg); Leukocyte Esterase, Urine Neg (Neg); Nitrite, Urine Neg (Neg); Protein, Urine 3+ (Neg); Specific Gravity, Urine 1.025 (1.003-1.022); Urobilinogen, Urine NORM (Normal)
[2023-03-29 14:44] LABS: Bacteria Rare /hpf; Hyaline Casts 0-2 /lpf (0-2); Squamous Epithelial Cells Rare /hpf (Few); White Blood Cells, Urine 0-2 /hpf (0-5)
[2023-03-29 14:50] LABS: U Cannabinoids Screen DETECTED
[2023-03-29 14:53] LABS: U Amphetamine Screen Not Detected; U Barbituate Screen Not Detected; U Benzodiazapine Screen Not Detected; U Buprenorphine Screen Not Detected; U Cocaine Screen Not Detected; U Methadone Screen Not Detected; U Methamphetamine Screen Not Detected; U Opiates Screen Not Detected; U Oxycodone Screen Not Detected; U Phencyclidine Screen Not Detected
== END 2023-03-29 16:39 | disposition home or self-care (01) ==
LOC: ER 12:14
PROVIDERS: Emergency Medicine
DX: E10.649 Type 1 diabetes mellitus with hypoglycemia without coma (principal); R56.9 Unspecified convulsions; E11.43 Type 2 diabetes mellitus with diabetic autonomic (poly)neuropathy; K31.84 Gastroparesis; I10 Essential (primary) hypertension; F43.10 Post-traumatic stress disorder, unspecified; Z79.899 Other long term (current) drug therapy
CPT/HCPCS: 80053; 81001; 82947; 85025; 93005; 93010; 96374; 99285-25; J2310

== ENCOUNTER 2023-06-08 22:14 | Emergency (ER) | payer OTHER ==
[~2023-06-08] VITALS: Ht 190.5 cm; Wt 78.0 kg
[~2023-06-08 22:14] MED LIST changes: +INSULIN LI100 UNIT/6 SC; +METOPROLOL SUCC25 MG PO
[2023-06-08 22:43] LABS: BASOPHILS ABSOLUTE AUTO 0.04 K/mm3 (0.00-0.23); BASOPHILS PERCENT AUTO 1 % (0-2); EOSINOPHILS ABSOLUTE AUTO 0.48 K/mm3 (0.00-0.68); EOSINOPHILS PERCENT AUTO 6 % (0-6); Hematocrit 36.1 % (37.0-53.0); Hemoglobin 11.6 g/dL (13.5-17.5); IMMATURE GRAN ABSOLUTE AUTO 0.01 K/mm3 (0.00-0.10); IMMATURE GRAN PERCENT AUTO 0 % (0-1); LYMPHOCYTES ABSOLUTE AUTO 2.24 K/mm3 (0.84-5.20); LYMPHOCYTES PERCENT AUTO 29 % (21-46); MONOCYTES PERCENT AUTO 10 % (4-13); Mean Corpuscular HGB 29.3 pg (26.0-34.0); Mean Corpuscular HGB Conc 32.1 g/dL (31.5-36.5); Mean Corpuscular Volume 91 fL (80-100); Mean Platelet Volume 8.3 fL (9.1-12.4); NEUTROPHILS ABSOLUTE AUTO 4.28 K/mm3 (1.96-9.15); NEUTROPHILS PERCENT AUTO 55 % (41-73); Platelet Count 330 K/mm3 (150-400); RDW Coefficient Variation 13.7 % (11.7-14.2); RDW Standard Deviation 46.3 fL (35.1-46.3); Red Blood Cell Count 3.96 M/mm3 (4.30-5.90); White Blood Cell Count 7.85 K/mm3 (4.00-11.30)
[2023-06-08 23:04] LABS: Alanine Aminotransfer (ALT/SGP 18 U/L (12-78); Albumin, Blood 3.4 g/dL (3.4-5.0); Alk Phos 74 U/L (50-136); Anion Gap Unable to Calculate mmol/L (6-16); Aspartate Aminotrans (AST/SGOT 16 U/L (12-37); Bilirubin, Total 0.3 mg/dL (0.1-1.0); Blood Urea Nitrogen 22 mg/dL (8-24); Bun/Creatinine Ratio 16.3 (12.0-20.0); CO2, Blood 32 mmol/L (21-32); Calcium, Blood 9.7 mg/dL (8.5-10.1); Chloride, Blood 109 mmol/L (98-108); Creatinine, Blood 1.35 mg/dL (0.60-1.20); Globulin, Blood 3.3 g/dL (2.2-4.0); Glomerular Filtration Rate 72 (60-); Glucose, Blood 76 mg/dL (70-99); Potassium, Blood 4.2 mmol/L (3.5-5.5); Sodium, Blood 140 mmol/L (136-145); Total Protein, Blood 6.7 g/dL (6.4-8.2)
[2023-06-08 23:10] LABS: Source, Urine Clean Catch
[2023-06-08 23:14] LABS: Bilirubin, Urine Neg (Neg); Blood, Urine 5+ (Neg); Glucose Qualitative, Urine 1+ (Neg); Ketones, Urine Neg (Neg); Leukocyte Esterase, Urine 1+ (Neg); Nitrite, Urine Neg (Neg); Protein, Urine 3+ (Neg); Urobilinogen, Urine NORM (Normal)
[2023-06-08 23:23] LABS: Appearance, Urine Clear (Clear); Bacteria Not Seen /hpf; Color, Urine Yellow (P-Yellow); Squamous Epithelial Cells Not Seen /hpf (Few); White Blood Cells, Urine 0-2 /hpf (0-5)
[2023-06-08 23:30] LABS: U Amphetamine Screen Not Detected; U Barbituate Screen Not Detected; U Benzodiazapine Screen Not Detected; U Buprenorphine Screen Not Detected; U Cannabinoids Screen DETECTED; U Cocaine Screen Not Detected; U Methadone Screen Not Detected; U Methamphetamine Screen Not Detected; U Opiates Screen Not Detected; U Oxycodone Screen Not Detected; U Phencyclidine Screen Not Detected
[2023-06-08 23:34] LABS: Ethanol (Alcohol), Blood, Med <3 mg/dL
[2023-06-08 23:36] LABS: Base Excess Venous 7.1 mmol/L; Bicarbonate Venous 30.6 mmol/L (24.0-30.0); PCO2 Venous 37.7 mmHg (38-42); pH Blood Venous 7.51 (7.34-7.37)
[2023-06-08 23:36] LABS: Beta-hydroxybutyrate 0.9 mg/dL (0.2-2.8); Magnesium, Blood 2.3 mg/dL (1.6-2.4)
[2023-06-09 00:15] VITALS: BP 130/85
== END 2023-06-09 00:27 | disposition home or self-care (01) ==
LOC: ER 22:14
PROVIDERS: Emergency Medicine; Student in an Organized Health Care Education/Training Program
DX: R10.31 Right lower quadrant pain (principal); Z91.012 Allergy to eggs; Z91.018 Allergy to other foods; Z88.8 Allergy status to other drugs, medicaments and biological substances; Z79.899 Other long term (current) drug therapy; Z79.4 Long term (current) use of insulin; I10 Essential (primary) hypertension; E10.43 Type 1 diabetes mellitus with diabetic autonomic (poly)neuropathy; K31.84 Gastroparesis; F43.10 Post-traumatic stress disorder, unspecified
CPT/HCPCS: 80053; 81001; 82010; 82803; 83605; 83690; 83735; 84145; 85025; 99284

== ENCOUNTER 2023-12-03 16:20 | Emergency (ER) | payer OTHER ==
[~2023-12-03] VITALS: Ht 190.5 cm; Wt 72.6 kg
[~2023-12-03 16:20] MED LIST changes: +ACETAMINOPHEN500 M2 PO; +AMOX-CLAV 875-1 EAC5 PO; +FERSU300 PO; +HUMALOG100 UNIT/1 SC; +HYDROCODONE-AC1 EA19 PO; +LATUDA60 M1 PO; +Reglan10 MG PO; +VISBIOME 112.51 EACH PO
[2023-12-03] MEDS ORDERED: NS 1,000 ML IV SCH ×2 (17:00→20:15)
[2023-12-03] MEDS ORDERED: Ondansetron HCl 2 MG / ML 2ML Vial IV ONE ×2 (17:00→20:50)
[2023-12-03 18:24] LABS: BASOPHILS ABSOLUTE AUTO 0.06 K/mm3 (0.00-0.23); BASOPHILS PERCENT AUTO 0 % (0-2); EOSINOPHILS ABSOLUTE AUTO 0.04 K/mm3 (0.00-0.68); EOSINOPHILS PERCENT AUTO 0 % (0-6); Hematocrit 40.1 % (37.0-53.0); Hemoglobin 13.3 g/dL (13.5-17.5); IMMATURE GRAN ABSOLUTE AUTO 0.09 K/mm3 (0.00-0.10); IMMATURE GRAN PERCENT AUTO 1 % (0-1); LYMPHOCYTES ABSOLUTE AUTO 1.46 K/mm3 (0.84-5.20); LYMPHOCYTES PERCENT AUTO 10 % (21-46); MONOCYTES ABSOLUTE AUTO 0.92 K/mm3 (0.16-1.47); MONOCYTES PERCENT AUTO 6 % (4-13); Mean Corpuscular HGB 28.1 pg (26.0-34.0); Mean Corpuscular HGB Conc 33.2 g/dL (31.5-36.5); Mean Corpuscular Volume 85 fL (80-100); Mean Platelet Volume 8.7 fL (9.1-12.4); NEUTROPHILS ABSOLUTE AUTO 12.18 K/mm3 (1.96-9.15); NEUTROPHILS PERCENT AUTO 83 % (41-73); Platelet Count 309 K/mm3 (150-400); RDW Coefficient Variation 15.7 % (11.7-14.2); RDW Standard Deviation 48.7 fL (35.1-46.3); Red Blood Cell Count 4.74 M/mm3 (4.30-5.90); White Blood Cell Count 14.75 K/mm3 (4.00-11.30)
[2023-12-03 18:46] LABS: Albumin, Blood 4.3 g/dL (3.4-5.0); Albumin/Globulin Ratio 1.1 (0.8-1.8); Bilirubin, Total 0.7 mg/dL (0.1-1.0); Bun/Creatinine Ratio 18.2 (12.0-20.0); Calcium, Blood 10.8 mg/dL (8.5-10.1); Creatinine, Blood 1.65 mg/dL (0.60-1.20); Globulin, Blood 3.8 g/dL (2.2-4.0); Potassium, Blood 4.2 mmol/L (3.5-5.5); Total Protein, Blood 8.1 g/dL (6.4-8.2)
[2023-12-03 20:13] LABS: Bicarbonate Venous 24.6 mmol/L (24.0-30.0); PCO2 Venous 47.2 mmHg (38-42); pH Blood Venous 7.36 (7.34-7.37)
[2023-12-03 20:26] LABS: Source, Urine Clean Catch
[2023-12-03 20:29] LABS: Bilirubin, Urine Neg (Neg); Blood, Urine 4+ (Neg); Glucose Qualitative, Urine 3+ (Neg); Ketones, Urine 3+ (Neg); Leukocyte Esterase, Urine 1+ (Neg); Nitrite, Urine Neg (Neg); Protein, Urine 4+ (Neg); Urobilinogen, Urine NORM (Normal)
[2023-12-03 20:34] LABS: Appearance, Urine Clear (Clear); Color, Urine Yellow (P-Yellow)
[2023-12-03 20:36] LABS: Bacteria Few /hpf; Red Blood Cells, Urine 50-100 /hpf (0-2); Squamous Epithelial Cells Rare /hpf (Few)
[2023-12-03 22:22] VITALS: BP 175/88
== END 2023-12-03 22:43 | disposition home or self-care (01) ==
LOC: ER 16:20
PROVIDERS: Physician Assistant
DX: R11.2 Nausea with vomiting, unspecified (principal); R10.9 Unspecified abdominal pain; E10.43 Type 1 diabetes mellitus with diabetic autonomic (poly)neuropathy; K31.84 Gastroparesis; I10 Essential (primary) hypertension; F32.A Depression, unspecified; Z91.012 Allergy to eggs; Z91.018 Allergy to other foods; Z88.0 Allergy status to penicillin; Z88.8 Allergy status to other drugs, medicaments and biological substances; Z79.4 Long term (current) use of insulin
CPT/HCPCS: 80053; 81001; 82010; 82803; 82947; 83690; 85025; 96361; 96374; 96376; 99284-25; J2405; J7030

== ENCOUNTER 2023-12-06 00:28 | Observation (INO) | payer OTHER ==
[~2023-12-06] VITALS: Ht 190.5 cm; Wt 70.7 kg
[2023-12-06 01:10] LABS: BASOPHILS ABSOLUTE AUTO 0.04 K/mm3 (0.00-0.23); BASOPHILS PERCENT AUTO 0 % (0-2); EOSINOPHILS ABSOLUTE AUTO 0.03 K/mm3 (0.00-0.68); EOSINOPHILS PERCENT AUTO 0 % (0-6); Hematocrit 35.5 % (37.0-53.0); Hemoglobin 12.1 g/dL (13.5-17.5); IMMATURE GRAN ABSOLUTE AUTO 0.02 K/mm3 (0.00-0.10); IMMATURE GRAN PERCENT AUTO 0 % (0-1); LYMPHOCYTES ABSOLUTE AUTO 2.76 K/mm3 (0.84-5.20); LYMPHOCYTES PERCENT AUTO 24 % (21-46); MONOCYTES ABSOLUTE AUTO 1.03 K/mm3 (0.16-1.47); MONOCYTES PERCENT AUTO 9 % (4-13); Mean Corpuscular HGB Conc 34.1 g/dL (31.5-36.5); Mean Corpuscular Volume 82 fL (80-100); Mean Platelet Volume 8.3 fL (9.1-12.4); NEUTROPHILS ABSOLUTE AUTO 7.49 K/mm3 (1.96-9.15); NEUTROPHILS PERCENT AUTO 66 % (41-73); Platelet Count 305 K/mm3 (150-400); RDW Coefficient Variation 15.9 % (11.7-14.2); RDW Standard Deviation 48.5 fL (35.1-46.3); Red Blood Cell Count 4.32 M/mm3 (4.30-5.90); White Blood Cell Count 11.37 K/mm3 (4.00-11.30)
[2023-12-06 01:10] LABS: Base Excess Venous 1.7 mmol/L; Bicarbonate Venous 26.3 mmol/L (24.0-30.0); PCO2 Venous 30.7 mmHg (38-42); pH Blood Venous 7.51 (7.34-7.37)
[2023-12-06 01:46] LABS: Albumin, Blood 4.2 g/dL (3.4-5.0); Albumin/Globulin Ratio 1.1 (0.8-1.8); Beta-hydroxybutyrate 22.9 mg/dL (0.2-2.8); Bilirubin, Total 0.9 mg/dL (0.1-1.0); Bun/Creatinine Ratio 21.4 (12.0-20.0); Calcium, Blood 9.6 mg/dL (8.5-10.1); Creatinine, Blood 2.01 mg/dL (0.60-1.20); Globulin, Blood 3.7 g/dL (2.2-4.0); Phosphorus, Blood 3.4 mg/dL (2.5-4.9); Potassium, Blood 3.2 mmol/L (3.5-5.5); Total Protein, Blood 7.9 g/dL (6.4-8.2)
[2023-12-06 03:11] LABS: Source, Urine Clean Catch
[2023-12-06 03:19] LABS: Bilirubin, Urine Neg (Neg); Blood, Urine 5+ (Neg); Glucose Qualitative, Urine Neg (Neg); Ketones, Urine 3+ (Neg); Leukocyte Esterase, Urine 1+ (Neg); Nitrite, Urine Neg (Neg); Protein, Urine 4+ (Neg); Specific Gravity, Urine 1.025 (1.003-1.022); Urobilinogen, Urine NORM (Normal)
[2023-12-06 03:24] LABS: Appearance, Urine Hazy (Clear); Color, Urine Yellow (P-Yellow)
[2023-12-06 03:26] LABS: Bacteria Mod /hpf; Red Blood Cells, Urine 25-50 /hpf (0-2); Squamous Epithelial Cells Few /hpf (Few); White Blood Cells, Urine 0-2 /hpf (0-5)
[2023-12-06] MEDS ORDERED: DiphenhydrAMINE HCl 50 MG/ML 1ML Vial IV ONE (04:20)
[2023-12-06] MEDS ORDERED: NS 1,000 ML IV SCH ×3 (04:20→10:30)
[2023-12-06] MEDS ORDERED: Prochlorperazine Edisylate 10 mg Vial IV ONE (04:20)
[2023-12-06] MEDS ORDERED: Ketorolac Tromethamine 30mg Vial IV ONE (04:25)
[2023-12-06] MEDS ORDERED: Ondansetron HCl 2 MG / ML 2ML Vial IV STA (10:24)
[2023-12-06] MEDS ORDERED: Ondansetron HCl 2 MG / ML 2ML Vial IV PRN (11:00)
[2023-12-06] MEDS ORDERED: LevoFLOXacin 750 MG/D5W 150ML 150 ML IV SCH (11:00)
[2023-12-06] MEDS ORDERED: Insulin Human Lispro 100 Units/ML 3ML Syringe SC SCH ×2 (11:30→21:00)
[2023-12-06 12:31] LABS: Bun/Creatinine Ratio 22.1 (12.0-20.0); Calcium, Blood 8.5 mg/dL (8.5-10.1); Creatinine, Blood 1.95 mg/dL (0.60-1.20); Potassium, Blood 3.4 mmol/L (3.5-5.5)
[2023-12-06 12:48] VITALS: BP 135/92
[2023-12-06] MEDS ORDERED: PRAZ2 PO (12:58)
[2023-12-06] MEDS ORDERED: Potassium Chloride 20 MEQ TabCR PO ONE ×2 (13:25→21:45)
--- NOTE | 2023-12-06 14:36 | NUR ---
ADMISSION NOTE: PATIENT ARRIVED TO THE UNIT VIA GURNEY ACCOMPANIED BY HIS SERVICE DOG PANCHO. PATIENT WAS ABLE TO SELF TRANSFER TO THE BED AND EVEN TAKE HIS DOG OUTSIDE. PATIENT C/O DIZZINESS, SHAKING, NOT FEELING WELL. HE WAS SETTLED IN ROOM AND NEEDS MET. CALL MADE TO DR. TOBI ANDERSON FOR PAIN; GOT A VERBAL ORDER FOR IBUPROFEN 400 MG Q6HRS NEEDED AND HE WAS ALSO NOTIFIED OF PATIENT'S L GREAT TOE WOUND.
[2023-12-06] MEDS ORDERED: Ibuprofen 400 MG Tab PO PRN (14:40)
[2023-12-06 15:01] VITALS: BP 182/101
[2023-12-06] MEDS ORDERED: TraMADol HCl 50 MG Tab PO PRN (15:35)
--- NOTE | 2023-12-06 17:36 | NUR ---
SHIFT SUMMARY: PT IS A&OX4, INDEPENDENT, MAKES NEEDS KNOWN. HE CAN BE LABILE AT TIMES; PATIENT HAS BEEN PLEASANT AND COOPERATIVE WITH CARE WITH THIS RN. HE C/O PAIN AND NAUSEA; NO VOMITING. PATIENT REFUSES INSULIN CORRECTION IF BLOOD SUGAR IS UNDER 200. PATIENT IS CONCRETE WITH HIS DECISIONS. PATIENT'S SERVICE DOG PANCHO IS AT [facility]; DOG IS WELL BEHAVED AND PLEASANT WITH STAFF. PATIENT IN BED, CALL LIGHT WITHIN REACH, NO SIGNS OR SYMPTOMS OF DISTRESS, PLAN OF CARE ONGOING.
--- NOTE | 2023-12-06 18:05 | NUR ---
REQUEST DR. BRITTON TO REVIEW [facility] REC AND UPDATE EMAR
[2023-12-06 18:09] VITALS: BP 167/97
[2023-12-06 19:35] VITALS: BP 154/109
[2023-12-06] MEDS ORDERED: Omeprazole 20 MG CapCR PO ONE (20:10)
[2023-12-06] MEDS ORDERED: OxyCODONE HCL 5 MG TAB PO PRN ×2 (20:25→21:45)
[2023-12-06] MEDS ORDERED: Acetaminophen 500 MG Tab PO PRN (20:50)
[2023-12-06] MEDS ORDERED: Omeprazole 20 MG CapCR PO PRN (20:50)
[2023-12-06] MEDS ORDERED: Prazosin HCL 5 MG Cap PO SCH (21:00)
[2023-12-06] MEDS ORDERED: LamoTRIgine 100 MG Tab PO SCH (21:00)
[2023-12-06] MEDS ORDERED: DULoxetine HCL 60 MG Capsule DR PO SCH (21:00)
[2023-12-06] MEDS ORDERED: TraZODone HCl 50 MG Tab PO SCH (21:00)
[2023-12-06] MEDS ORDERED: Baclofen 10 MG Tab PO SCH (21:00)
[2023-12-06] MEDS ORDERED: Ferrous Sulfate 325 MG Tab PO SCH (21:00)
[2023-12-06] MEDS ORDERED: Insulin Glargine-Yfgn 100 Unit/mL 3 ML SYR SC SCH (21:00)
[2023-12-06] MEDS ORDERED: Metoclopramide HCl 10 MG Tab PO SCH (21:00)
[2023-12-06] MEDS ORDERED: Lactated Ringer's 1,000 ML IV ONE (21:15)
--- NOTE | 2023-12-06 21:28 | NUR ---
CALL FROM SAIMA PENNINGTON, PHARMCIST: PATIENT'S MED LIST STATES PRAZOSIN 20mg BUT THIS IS TYPICALLY DISPENSED AND ADMINISTERED IN 2MG INCRIMENTS. UPON REVIEW OF PATIENT'S MED CLAIM Hx, IT APPEARS HE IS ON 2mg. CALL TO PRIMARY RN: STATES THIS MED WAS ADDED TO MED LIST PER PATIENT REPORT. PHARMACIST NOTIFIED THIS IS LIKELY AN ERROR ON PT BEHALF IT APPEARS PT TAKES 2MG NOT 20MG. SAIMA WILL SEND OUT 2MG TABLET.
[2023-12-06] MEDS ORDERED: Prochlorperazine Edisylate 10 mg Vial IV PRN (21:30)
[2023-12-06] MEDS ORDERED: Acetaminophen 325 MG TABLET PO PRN (21:50)
[2023-12-06] MEDS ORDERED: Morphine Sulfate 4 MG/1 ML Injection IV PRN (21:50)
[2023-12-06] MEDS ORDERED: Metoclopramide HCl 5MG / ML 2ML Vial IV PRN (21:50)
[2023-12-06] MEDS ORDERED: Prazosin HCl 1 MG Cap PO SCH (22:00)
[2023-12-06] MEDS ORDERED: LURASIDONE 60 MG TAB PO SCH (22:00)
[2023-12-06] MEDS ORDERED: Lactated Ringer's 1,000 ML IV SCH (22:30)
[2023-12-07 02:36] VITALS: BP 141/85
[2023-12-07 05:37] LABS: Bun/Creatinine Ratio 21.1 (12.0-20.0); Calcium, Blood 8.3 mg/dL (8.5-10.1); Creatinine, Blood 1.66 mg/dL (0.60-1.20); Potassium, Blood 3.7 mmol/L (3.5-5.5)
[2023-12-07] MEDS ORDERED: Omeprazole 20 MG CapCR PO SCH (06:00)
--- NOTE | 2023-12-07 06:19 | NUR ---
PAIN MANAGED WITH PRN MEDS. 1L LR BOLUS ADMINISTERED, SECOND BAG RAN AT 200/HR, THIRD BAG ONGOING. COMPLAINTS OF NAUSEA - PRN MEDS ADMINISTERED. PT DISRESPECTFUL TO STAFF - PARTICULARLY TO NURSING ASSISTANTS EASILY ANGERED FOR MINOR INCONVENIENCES, REMINDED TO BE RESPECTFUL BUT BEHAVIOR CONTINUED. BISQUE KILN PLACER RELIEVED OF ROOM DUE TO BEHAVIOR. PT FELT OFF, BLOOD SUGAR WAS CHECKED, CBG 57. SNACKS PROVIDED AND RECHECKED, CBG 82.
[2023-12-07 07:59] VITALS: BP 131/73
[2023-12-07] MEDS ORDERED: Enoxaparin 40 MG/0.4 ML SYR SC SCH (09:00)
[2023-12-07] MEDS ORDERED: DULoxetine HCL 30 MG Cap DR PO SCH (09:00)
[2023-12-07] MEDS ORDERED: SULTRIDS PO (14:27)
[2023-12-07] MEDS ORDERED: PROM25 PO (14:27)
--- NOTE | 2023-12-07 16:05 | NUR ---
DISCHARGE NOTE: DISCHARGE WENT OVER WITH PATIENT. PATIENT GOT DRESSED, COLLECTED BELONGINGS, AND HIM AND HIS SERVICE DOG PANCHO WALKED DOWN TO THE [facility] WHERE HIS RIDE WAS SET UP AT 1600. IV WAS REMOVED. NO SIGNS OR SYMPTOMS OF DISTRESS DURING DISCHARGE. PATIENT'S BLOOD SUGAR STABLE THIS AFTERNOON.
== END 2023-12-07 16:00 | disposition home or self-care (01) ==
LOC: ER 00:28 → MEDS 00:29 → ERHOLD 00:29 → MEDS 12:36
PROVIDERS: Internal Medicine; Student in an Organized Health Care Education/Training Program; ADMIT Family Medicine
DX: E10.10 Type 1 diabetes mellitus with ketoacidosis without coma (principal); E10.22 Type 1 diabetes mellitus with diabetic chronic kidney disease; I12.9 Hypertensive chronic kidney disease with stage 1 through stage 4 chronic kidney disease, or unspecified chronic kidney disease; N18.30 Chronic kidney disease, stage 3 unspecified; Z79.4 Long term (current) use of insulin; E86.0 Dehydration; F31.9 Bipolar disorder, unspecified; K21.9 Gastro-esophageal reflux disease without esophagitis; E87.6 Hypokalemia; G47.00 Insomnia, unspecified; N17.9 Acute kidney failure, unspecified; Z79.899 Other long term (current) drug therapy; Z88.0 Allergy status to penicillin; Z88.5 Allergy status to narcotic agent; Z91.010 Allergy to peanuts; Z91.012 Allergy to eggs; Z86.73 Personal history of transient ischemic attack (TIA), and cerebral infarction without residual deficits; E10.43 Type 1 diabetes mellitus with diabetic autonomic (poly)neuropathy; K31.84 Gastroparesis; H54.7 Unspecified visual loss; F43.10 Post-traumatic stress disorder, unspecified
CPT/HCPCS: 36415; 71045; 80048; 80053; 81001; 82010; 82803; 82947; 83690; 83735; 84100; 85025; 87086; 93005; 93010; 96365; 96366; 96375; 96376; 99285-25; A9270; G0378; J0780; J1200; J1815; J1885; J1956; J2405; J7030; J7120

== ENCOUNTER 2024-06-17 00:30 | Day surgery (SDC) | payer OTHER ==
[~2024-06-17 00:30] MED LIST changes: +PRAZ2 PO; +PROM25 PO
[2024-06-17] MEDS ORDERED: Cosyntropin 0.25 MG / ML 1ML Vial IV ONE (07:00)
[2024-06-17 08:30] VITALS: BP 126/89
--- NOTE | 2024-06-17 09:06 | NUR ---
30 MIN LAB DRAWN FROM IV PER PROTOCOL
== END 2024-06-17 09:45 | disposition home or self-care (01) ==
LOC: ATC 00:30
DX: I47.9 Paroxysmal tachycardia, unspecified (principal); I95.1 Orthostatic hypotension; E10.22 Type 1 diabetes mellitus with diabetic chronic kidney disease; N18.9 Chronic kidney disease, unspecified; Z88.7 Allergy status to serum and vaccine; Z79.4 Long term (current) use of insulin; Z79.899 Other long term (current) drug therapy
CPT/HCPCS: 80400; 82533; 96374; J0834

== ENCOUNTER → 2024-07-02 | Outpatient (CLI) | payer OTHER ==
[2024-07-03 12:18] LABS: IMMATURE RETIC FRACTION 7.8 % (2.3-16.0); RETIC HGB EQUIVALENT 33.6 pg (28.20-36.60); RETICULOCYTE COUNT PERCENT 1.49 % (0.50-2.50)
[2024-07-03 12:34] LABS: Albumin, Blood 4.3 g/dL (3.4-5.0); Albumin/Globulin Ratio 1.3 (0.8-1.8); Bilirubin, Total 0.4 mg/dL (0.1-1.0); Bun/Creatinine Ratio 14.1 (12.0-20.0); Creatinine, Blood 1.92 mg/dL (0.60-1.20); Globulin, Blood 3.4 g/dL (2.2-4.0); Percent Saturation 33.4 % (20.0-50.0); Total Protein, Blood 7.7 g/dL (6.4-8.2)
== END | disposition home or self-care (01) ==
LOC: LAB 15:55 → LAB SHORT 15:55
PROVIDERS: Family Medicine
DX: E10.21 Type 1 diabetes mellitus with diabetic nephropathy (principal); D50.9 Iron deficiency anemia, unspecified
CPT/HCPCS: 80053; 82728; 83540; 83550; 85045

== ENCOUNTER → 2024-07-02 | Outpatient (CLI) | payer OTHER | LOC: LAB SHORT 17:25 → LAB 17:25 | DX: E10.21 Type 1 diabetes mellitus with diabetic nephropathy (principal) | CPT/HCPCS: 82043 ==

== ENCOUNTER 2024-10-22 12:34 | Emergency (ER) | payer OTHER ==
[~2024-10-22] VITALS: Ht 172.7 cm; Wt 68.0 kg
[2024-10-22 13:00] LABS: pH Blood Venous 7.56 (7.34-7.37)
[2024-10-22] MEDS ORDERED: Haloperidol Lactate Inj. 5 MG/ML Injection IV ONE ×2 (13:00→16:00)
[2024-10-22 13:10] LABS: BASOPHILS ABSOLUTE AUTO 0.05 K/mm3 (0.00-0.23); BASOPHILS PERCENT AUTO 1 % (0-2); EOSINOPHILS ABSOLUTE AUTO 0.12 K/mm3 (0.00-0.68); EOSINOPHILS PERCENT AUTO 1 % (0-6); Hematocrit 36.9 % (37.0-53.0); Hemoglobin 12.4 g/dL (13.5-17.5); IMMATURE GRAN ABSOLUTE AUTO 0.03 K/mm3 (0.00-0.10); IMMATURE GRAN PERCENT AUTO 0 % (0-1); LYMPHOCYTES ABSOLUTE AUTO 2.14 K/mm3 (0.84-5.20); LYMPHOCYTES PERCENT AUTO 22 % (21-46); MONOCYTES ABSOLUTE AUTO 0.38 K/mm3 (0.16-1.47); MONOCYTES PERCENT AUTO 4 % (4-13); Mean Corpuscular HGB Conc 33.6 g/dL (31.5-36.5); Mean Corpuscular Volume 87 fL (80-100); NEUTROPHILS ABSOLUTE AUTO 7.08 K/mm3 (1.96-9.15); NEUTROPHILS PERCENT AUTO 72 % (41-73); NRBC ABSOLUTE 0.00 K/mm3 (0.00-0.02); NRBC Auto 0.0 /100 WBC (0.0-0.2); Platelet Count 356 K/mm3 (150-400); RDW Coefficient Variation 13.2 % (11.7-14.2); RDW Standard Deviation 41.6 fL (35.1-46.3)
[2024-10-22 13:49] LABS: Alanine Aminotransfer (ALT/SGP 49.0 U/L (12-78); Albumin, Blood 4.2 g/dL (3.4-5.0); Albumin/Globulin Ratio 1.2 (0.8-1.8); Anion Gap 11.0 mmol/L (3-11); Aspartate Aminotrans (AST/SGOT 27.0 U/L (12-37); Bilirubin, Total 0.5 mg/dL (0.1-1.0); Blood Urea Nitrogen 23.0 mg/dL (8-24); CO2, Blood 26.0 mmol/L (21-32); Calcium, Blood 9.9 mg/dL (8.5-10.1); Chloride, Blood 103.0 mmol/L (98-108); Creatinine, Blood 1.82 mg/dL (0.60-1.20); Globulin, Blood 3.5 g/dL (2.2-4.0); Glucose, Blood 195.0 mg/dL (70-99); Potassium, Blood 4.1 mmol/L (3.5-5.5); Sodium, Blood 136.0 mmol/L (136-145); Total Protein, Blood 7.7 g/dL (6.4-8.2)
[2024-10-22] MEDS ORDERED: NS 1,000 ML IV SCH (14:00)
[2024-10-22 15:30] LABS: Source, Urine Clean Catch
[2024-10-22 15:35] LABS: Bilirubin, Urine Neg (Neg); Color, Urine Yellow (P-Yellow); Glucose Qualitative, Urine 4+ (Neg); Ketones, Urine 4+ (Neg); Leukocyte Esterase, Urine 1+ (Neg); Protein, Urine 4+ (Neg); Specific Gravity, Urine 1.010 (1.003-1.022); Urobilinogen, Urine NORM (Normal)
[2024-10-22] MEDS ORDERED: Insulin Regular 100 Unit/ML 1ML Dose IV ONE (15:45)
[2024-10-22] MEDS ORDERED: CEPH500 PO (16:39)
[2024-10-22 16:45] VITALS: BP 128/73
[2024-10-22 17:28] LABS: U Amphetamine Screen Not Detected; U Barbituate Screen Not Detected; U Benzodiazapine Screen Not Detected; U Buprenorphine Screen Not Detected; U Cannabinoids Screen DETECTED; U Cocaine Screen Not Detected; U Methadone Screen Not Detected; U Methamphetamine Screen Not Detected; U Opiates Screen Not Detected; U Oxycodone Screen Not Detected; U Phencyclidine Screen Not Detected
[2024-10-23] MEDS ORDERED: PROMETHAZINE12.5 M1 PO (07:58)
== END 2024-10-22 17:20 | disposition home or self-care (01) ==
LOC: ER 12:34
PROVIDERS: Emergency Medicine; Student in an Organized Health Care Education/Training Program
DX: R11.2 Nausea with vomiting, unspecified (principal); F12.90 Cannabis use, unspecified, uncomplicated; E10.43 Type 1 diabetes mellitus with diabetic autonomic (poly)neuropathy; K31.84 Gastroparesis; N39.0 Urinary tract infection, site not specified; I12.9 Hypertensive chronic kidney disease with stage 1 through stage 4 chronic kidney disease, or unspecified chronic kidney disease; E10.22 Type 1 diabetes mellitus with diabetic chronic kidney disease; N18.30 Chronic kidney disease, stage 3 unspecified; Z91.012 Allergy to eggs; Z88.0 Allergy status to penicillin; Z88.8 Allergy status to other drugs, medicaments and biological substances; Z91.018 Allergy to other foods; Z79.899 Other long term (current) drug therapy; Z79.4 Long term (current) use of insulin
CPT/HCPCS: 80053; 81001; 82010; 82803; 82947; 85025; 87086; 96361; 96374; 96376; 99284-25; A9270; J1630; J1790; J1815; J7030

== ENCOUNTER 2024-10-23 06:08 | Emergency (ER) | payer OTHER ==
[~2024-10-23] VITALS: Ht 188 cm; Wt 72.6 kg
[2024-10-23] MEDS ORDERED: CefTRIAXone Sodium 1,000 MG in NS 100 ML IV ONE (06:25)
[2024-10-23] MEDS ORDERED: NS 1,000 ML IV SCH (06:25)
[2024-10-23 06:28] LABS: BASOPHILS ABSOLUTE AUTO 0.04 K/mm3 (0.00-0.23); BASOPHILS PERCENT AUTO 0 % (0-2); EOSINOPHILS ABSOLUTE AUTO 0.09 K/mm3 (0.00-0.68); EOSINOPHILS PERCENT AUTO 1 % (0-6); Hematocrit 33.6 % (37.0-53.0); Hemoglobin 11.3 g/dL (13.5-17.5); IMMATURE GRAN ABSOLUTE AUTO 0.02 K/mm3 (0.00-0.10); IMMATURE GRAN PERCENT AUTO 0 % (0-1); LYMPHOCYTES ABSOLUTE AUTO 3.42 K/mm3 (0.84-5.20); LYMPHOCYTES PERCENT AUTO 35 % (21-46); MONOCYTES ABSOLUTE AUTO 0.66 K/mm3 (0.16-1.47); MONOCYTES PERCENT AUTO 7 % (4-13); Mean Corpuscular HGB Conc 33.6 g/dL (31.5-36.5); Mean Corpuscular Volume 88 fL (80-100); NEUTROPHILS ABSOLUTE AUTO 5.48 K/mm3 (1.96-9.15); NEUTROPHILS PERCENT AUTO 57 % (41-73); NRBC ABSOLUTE 0.00 K/mm3 (0.00-0.02); NRBC Auto 0.0 /100 WBC (0.0-0.2); Platelet Count 295 K/mm3 (150-400); RDW Coefficient Variation 13.8 % (11.7-14.2); RDW Standard Deviation 44.4 fL (35.1-46.3)
[2024-10-23 06:57] LABS: pH Blood Venous 7.60 (7.34-7.37)
[2024-10-23 06:58] LABS: Alanine Aminotransfer (ALT/SGP 36.0 U/L (12-78); Albumin, Blood 3.8 g/dL (3.4-5.0); Albumin/Globulin Ratio 1.2 (0.8-1.8); Anion Gap 8.0 mmol/L (3-11); Aspartate Aminotrans (AST/SGOT 17.0 U/L (12-37); Bilirubin, Total 0.4 mg/dL (0.1-1.0); Blood Urea Nitrogen 24.0 mg/dL (8-24); CO2, Blood 28.0 mmol/L (21-32); Calcium, Blood 9.0 mg/dL (8.5-10.1); Chloride, Blood 104.0 mmol/L (98-108); Creatinine, Blood 1.8 mg/dL (0.60-1.20); Globulin, Blood 3.3 g/dL (2.2-4.0); Glucose, Blood 242.0 mg/dL (70-99); Potassium, Blood 3.8 mmol/L (3.5-5.5); Sodium, Blood 136.0 mmol/L (136-145); Total Protein, Blood 7.1 g/dL (6.4-8.2)
[2024-10-23] MEDS ORDERED: Metoclopramide HCl 5MG / ML 2ML Vial IV ONE (07:15)
[2024-10-23 07:53] LABS: pH Blood Venous 7.50 (7.34-7.37)
[2024-10-23] MEDS ORDERED: PROMETHAZINE12.5 M1 PO (07:58)
[2024-10-23] MEDS ORDERED: Ondansetron 4 MG SoluTab SL ONE (08:40)
[2024-10-23] MEDS ORDERED: Insulin Regular 100 Unit/ML 1ML Dose SC ONE (08:40)
[2024-10-23 09:38] VITALS: BP 143/73
[2024-10-24] MEDS ORDERED: REGLAN1013 PO (01:28)
[2024-10-24] MEDS ORDERED: Adderall Xr 5 MG5 MG PO (01:29)
[2024-10-24] MEDS ORDERED: QUETIAPINE FUMA5012 PO (01:30)
== END 2024-10-23 09:42 | disposition home or self-care (01) ==
LOC: ER 06:08
PROVIDERS: Emergency Medicine
DX: E10.43 Type 1 diabetes mellitus with diabetic autonomic (poly)neuropathy (principal); K31.84 Gastroparesis; I12.9 Hypertensive chronic kidney disease with stage 1 through stage 4 chronic kidney disease, or unspecified chronic kidney disease; E10.22 Type 1 diabetes mellitus with diabetic chronic kidney disease; N18.30 Chronic kidney disease, stage 3 unspecified; F43.10 Post-traumatic stress disorder, unspecified; E86.0 Dehydration
CPT/HCPCS: 80053; 82803; 82947; 85025; 93005; 93010; A9270; J0696; J1815; J2765; J7030

== ENCOUNTER 2024-10-23 20:40 | Inpatient (IN) | payer OTHER ==
[~2024-10-23] VITALS: Ht 188 cm; Wt 70.0 kg
[~2024-10-23 20:40] MED LIST changes: +PROMETHAZINE12.5 M1 PO
[2024-10-23] MEDS ORDERED: NS 1,000 ML IV SCH ×2 (21:25→23:05)
[2024-10-23] MEDS ORDERED: Ondansetron HCl 2 MG / ML 2ML Vial IV ONE (21:25)
[2024-10-23 21:45] LABS: BASOPHILS ABSOLUTE AUTO 0.02 K/mm3 (0.00-0.23); BASOPHILS PERCENT AUTO 0 % (0-2); EOSINOPHILS ABSOLUTE AUTO 0.04 K/mm3 (0.00-0.68); EOSINOPHILS PERCENT AUTO 0 % (0-6); Hematocrit 33.0 % (37.0-53.0); Hemoglobin 11.3 g/dL (13.5-17.5); IMMATURE GRAN ABSOLUTE AUTO 0.03 K/mm3 (0.00-0.10); IMMATURE GRAN PERCENT AUTO 0 % (0-1); LYMPHOCYTES ABSOLUTE AUTO 1.15 K/mm3 (0.84-5.20); LYMPHOCYTES PERCENT AUTO 9 % (21-46); MONOCYTES ABSOLUTE AUTO 0.27 K/mm3 (0.16-1.47); MONOCYTES PERCENT AUTO 2 % (4-13); Mean Corpuscular HGB Conc 34.2 g/dL (31.5-36.5); Mean Corpuscular Volume 88 fL (80-100); NEUTROPHILS ABSOLUTE AUTO 11.24 K/mm3 (1.96-9.15); NEUTROPHILS PERCENT AUTO 88 % (41-73); NRBC ABSOLUTE 0.00 K/mm3 (0.00-0.02); NRBC Auto 0.0 /100 WBC (0.0-0.2); Platelet Count 343 K/mm3 (150-400); RDW Coefficient Variation 13.6 % (11.7-14.2); RDW Standard Deviation 43.7 fL (35.1-46.3)
[2024-10-23 21:46] LABS: pH Blood Venous 7.50 (7.34-7.37)
[2024-10-23 22:09] LABS: Alanine Aminotransfer (ALT/SGP 32.0 U/L (12-78); Albumin, Blood 3.8 g/dL (3.4-5.0); Albumin/Globulin Ratio 1.1 (0.8-1.8); Anion Gap 14.0 mmol/L (3-11); Aspartate Aminotrans (AST/SGOT 29.0 U/L (12-37); Bilirubin, Total 0.8 mg/dL (0.1-1.0); Blood Urea Nitrogen 23.0 mg/dL (8-24); CO2, Blood 24.0 mmol/L (21-32); Calcium, Blood 9.4 mg/dL (8.5-10.1); Chloride, Blood 102.0 mmol/L (98-108); Creatinine, Blood 1.7 mg/dL (0.60-1.20); Globulin, Blood 3.4 g/dL (2.2-4.0); Glucose, Blood 284.0 mg/dL (70-99); Potassium, Blood 4.7 mmol/L (3.5-5.5); Sodium, Blood 135.0 mmol/L (136-145); Total Protein, Blood 7.2 g/dL (6.4-8.2)
[2024-10-23] MEDS ORDERED: Haloperidol Lactate Inj. 5 MG/ML Injection IV ONE (22:50)
[2024-10-23] MEDS ORDERED: Metoclopramide HCl 5MG / ML 2ML Vial IV PRN (23:00)
[2024-10-23] MEDS ORDERED: Enoxaparin 40 MG/0.4 ML SYR SC SCH (23:00)
[2024-10-23] MEDS ORDERED: Ondansetron HCl 2 MG / ML 2ML Vial IV PRN (23:05)
[2024-10-23] MEDS ORDERED: FentaNYL Citrate 50 MCG/ML 2 ML Injection IV PRN (23:05)
[2024-10-24] MEDS ORDERED: REGLAN1013 PO (01:28)
[2024-10-24] MEDS ORDERED: Adderall Xr 5 MG5 MG PO (01:29)
[2024-10-24] MEDS ORDERED: QUETIAPINE FUMA5012 PO (01:30)
[2024-10-24] MEDS ORDERED: Insulin Glargine-Yfgn 100 Unit/mL 3 ML SYR SC ONE (03:00)
[2024-10-24 04:30] LABS: BASOPHILS ABSOLUTE AUTO 0.02 K/mm3 (0.00-0.23); BASOPHILS PERCENT AUTO 0 % (0-2); EOSINOPHILS ABSOLUTE AUTO 0.01 K/mm3 (0.00-0.68); EOSINOPHILS PERCENT AUTO 0 % (0-6); Hematocrit 32.0 % (37.0-53.0); Hemoglobin 10.5 g/dL (13.5-17.5); IMMATURE GRAN ABSOLUTE AUTO 0.05 K/mm3 (0.00-0.10); IMMATURE GRAN PERCENT AUTO 0 % (0-1); LYMPHOCYTES ABSOLUTE AUTO 1.54 K/mm3 (0.84-5.20); LYMPHOCYTES PERCENT AUTO 12 % (21-46); MONOCYTES ABSOLUTE AUTO 0.24 K/mm3 (0.16-1.47); MONOCYTES PERCENT AUTO 2 % (4-13); Mean Corpuscular HGB Conc 32.8 g/dL (31.5-36.5); Mean Corpuscular Volume 89 fL (80-100); NEUTROPHILS ABSOLUTE AUTO 11.20 K/mm3 (1.96-9.15); NEUTROPHILS PERCENT AUTO 86 % (41-73); NRBC ABSOLUTE 0.00 K/mm3 (0.00-0.02); NRBC Auto 0.0 /100 WBC (0.0-0.2); Platelet Count 289 K/mm3 (150-400); RDW Coefficient Variation 13.7 % (11.7-14.2); RDW Standard Deviation 44.9 fL (35.1-46.3)
[2024-10-24 05:13] LABS: Alanine Aminotransfer (ALT/SGP 28.0 U/L (12-78); Albumin, Blood 3.8 g/dL (3.4-5.0); Albumin/Globulin Ratio 1.3 (0.8-1.8); Anion Gap 15.0 mmol/L (3-11); Aspartate Aminotrans (AST/SGOT 14.0 U/L (12-37); Bilirubin, Total 0.7 mg/dL (0.1-1.0); Blood Urea Nitrogen 25.0 mg/dL (8-24); CO2, Blood 21.0 mmol/L (21-32); Calcium, Blood 8.8 mg/dL (8.5-10.1); Chloride, Blood 103.0 mmol/L (98-108); Creatinine, Blood 1.76 mg/dL (0.60-1.20); Globulin, Blood 3.0 g/dL (2.2-4.0); Glucose, Blood 397.0 mg/dL (70-99); Potassium, Blood 4.2 mmol/L (3.5-5.5); Sodium, Blood 135.0 mmol/L (136-145); Total Protein, Blood 6.8 g/dL (6.4-8.2)
[2024-10-24 05:42] VITALS: BP 168/106
[2024-10-24] MEDS ORDERED: Pantoprazole Sodium 40 MG Injection IV SCH (06:00)
[2024-10-24 06:23] LABS: Source, Urine Clean Catch
[2024-10-24 06:28] LABS: Bilirubin, Urine Neg (Neg); Color, Urine Yellow (P-Yellow); Glucose Qualitative, Urine 4+ (Neg); Ketones, Urine 4+ (Neg); Leukocyte Esterase, Urine Neg (Neg); Protein, Urine 3+ (Neg); Specific Gravity, Urine 1.025 (1.003-1.022); Urobilinogen, Urine NORM (Normal)
--- NOTE | 2024-10-24 06:47 | NUR ---
PATIENT ARRIVED ON UNIT DURING SHIFT. PATIENT ALERT AND ORIENED X4. PATIENT ON ROOM AIR. PATIENT NAUSEOUS UPON ARRIVING. NOTIFIED AND ORDER PHENERGAN SUPP. PT REFUSED SUPPOSITORY. NS RUNNING AT 100 ML/HR. PATIENT IS NPO. UP TO BATHROOM INDEPENDENTLY. ORIENTED TO OWN ABILITY. BED IN LOW POSITION. CALL LIGHT WITHIN REACH
[2024-10-24 07:16] LABS: White Blood Cells, Urine 0-2 /hpf (0-5)
[2024-10-24] MEDS ORDERED: Insulin Human Lispro 100 Units/ML 3ML Syringe SC SCH ×2 (07:30→20:00)
[2024-10-24] MEDS ORDERED: Insulin Human Lispro 100 Units/ML 3ML Syringe SC STA (07:33)
[2024-10-24 07:38] VITALS: BP 167/82
[2024-10-24] MEDS ORDERED: Insulin Glargine-Yfgn 100 Unit/mL 3 ML SYR SC SCH ×3 (09:00→21:00)
[2024-10-24 09:24] LABS: Anion Gap 14.0 mmol/L (3-11); Blood Urea Nitrogen 26.0 mg/dL (8-24); CO2, Blood 24.0 mmol/L (21-32); Calcium, Blood 8.9 mg/dL (8.5-10.1); Chloride, Blood 103.0 mmol/L (98-108); Creatinine, Blood 1.74 mg/dL (0.60-1.20); Glucose, Blood 318.0 mg/dL (70-99); Potassium, Blood 3.5 mmol/L (3.5-5.5); Sodium, Blood 137.0 mmol/L (136-145)
[2024-10-24] MEDS ORDERED: NS 1,000 ML IV SCH (10:00)
[2024-10-24 11:11] VITALS: BP 131/77
[2024-10-24 15:09] VITALS: BP 156/95
[2024-10-24 16:14] LABS: Anion Gap 6.0 mmol/L (3-11); Blood Urea Nitrogen 24.0 mg/dL (8-24); CO2, Blood 29.0 mmol/L (21-32); Calcium, Blood 9.1 mg/dL (8.5-10.1); Chloride, Blood 106.0 mmol/L (98-108); Creatinine, Blood 1.61 mg/dL (0.60-1.20); Glucose, Blood 192.0 mg/dL (70-99); Potassium, Blood 3.8 mmol/L (3.5-5.5); Sodium, Blood 137.0 mmol/L (136-145)
[2024-10-24] MEDS ORDERED: Prochlorperazine Edisylate 10 mg Vial IV PRN (16:15)
[2024-10-24] MEDS ORDERED: Diazepam 5 MG / ML 2ML SYR IV ONE (18:40)
[2024-10-24] MEDS ORDERED: Insulin Human Lispro 100 Units/ML 3ML Syringe SC ONE (18:40)
--- NOTE | 2024-10-24 18:58 | NUR ---
SHIFT SUMMARY PT ALERT, ORIENTED X4; ANXIOUS, COOPERATIVE WITH CARE. PT REPORTS NAUSEA AND EMESIS T/O SHIFT, MEDICATED PER EMAR. PT REQUESTING CBG FREQUENTLY, REQUESTING INSULIN, NOTIFIED PROVIDER, NEW ORDERS ENTERED. PT RECEIVING IV FLUIDS. PT REPORTS INTERMITTENT ABD PAIN. DENIES CHEST PAIN/PRESSURE, SOB, DIZZINESS AND NUMB/TINGLING. TELE SINUS, BP ELEVATED. SPO2 >90%, BREATHING EVEN AND UNLABORED. ABD SOFT, TENDER, +BT. OTHER VSS. PT REQUESTING ICE CHIPS AND DIET LEMON/LOWER [place], DOES NOT TOLERATE WELL.
[2024-10-24 19:46] VITALS: BP 147/96
--- NOTE | 2024-10-24 21:22 | NUR ---
PT BEING TRANSFERED TO MEDICAL FLOOR ROOM 360 DUE TO SURGICAL ADMIT WAITING. REPORT GIVEN TO BELLE SAENZ. PT NOT ASSESSED BY THIS RN JUST GOT REPORT AND WAS PASSING MEDS.
[2024-10-24 21:56] VITALS: BP 180/88
--- NOTE | 2024-10-25 02:57 | NUR ---
PT STS NOT FEELING WELL AND NAUSEATED. PT NOT DUE FOR NAUSEA MEDICATION AT THIS TIME. PT ALSO STS PAIN. PT MEDICATED PER EMAR FOR PAIN. BLOOD GLUCOSE LEVEL ALSO TAKEN AT THIS TIME. PT HAD BLOOD GLUCOSE OF 76. DR IBANEZ NOTIFIED AND ORDER FOR AMP OF D50 X 1 GIVEN. ORDERED THIS MEDICATION AND AWAITING PHARMACY. WILL RELAY THIS INFORMATION TO PT'S PRIMARY RN UPON HER RETURN.
[2024-10-25 05:10] LABS: BASOPHILS ABSOLUTE AUTO 0.01 K/mm3 (0.00-0.23); BASOPHILS PERCENT AUTO 0 % (0-2); EOSINOPHILS ABSOLUTE AUTO 0.03 K/mm3 (0.00-0.68); EOSINOPHILS PERCENT AUTO 0 % (0-6); Hematocrit 28.0 % (37.0-53.0); Hemoglobin 9.4 g/dL (13.5-17.5); IMMATURE GRAN ABSOLUTE AUTO 0.04 K/mm3 (0.00-0.10); IMMATURE GRAN PERCENT AUTO 0 % (0-1); LYMPHOCYTES ABSOLUTE AUTO 1.99 K/mm3 (0.84-5.20); LYMPHOCYTES PERCENT AUTO 19 % (21-46); MONOCYTES ABSOLUTE AUTO 0.59 K/mm3 (0.16-1.47); MONOCYTES PERCENT AUTO 6 % (4-13); Mean Corpuscular HGB Conc 33.6 g/dL (31.5-36.5); Mean Corpuscular Volume 89 fL (80-100); NEUTROPHILS ABSOLUTE AUTO 7.61 K/mm3 (1.96-9.15); NEUTROPHILS PERCENT AUTO 74 % (41-73); NRBC ABSOLUTE 0.00 K/mm3 (0.00-0.02); NRBC Auto 0.0 /100 WBC (0.0-0.2); Platelet Count 249 K/mm3 (150-400); RDW Coefficient Variation 13.7 % (11.7-14.2); RDW Standard Deviation 44.6 fL (35.1-46.3)
[2024-10-25 05:39] LABS: Alanine Aminotransfer (ALT/SGP 26.0 U/L (12-78); Albumin, Blood 3.3 g/dL (3.4-5.0); Albumin/Globulin Ratio 1.2 (0.8-1.8); Anion Gap 6.0 mmol/L (3-11); Aspartate Aminotrans (AST/SGOT 16.0 U/L (12-37); Bilirubin, Total 0.4 mg/dL (0.1-1.0); Blood Urea Nitrogen 22.0 mg/dL (8-24); CO2, Blood 30.0 mmol/L (21-32); Calcium, Blood 8.7 mg/dL (8.5-10.1); Chloride, Blood 106.0 mmol/L (98-108); Creatinine, Blood 1.45 mg/dL (0.60-1.20); Globulin, Blood 2.8 g/dL (2.2-4.0); Glucose, Blood 158.0 mg/dL (70-99); Potassium, Blood 3.5 mmol/L (3.5-5.5); Sodium, Blood 138.0 mmol/L (136-145); Total Protein, Blood 6.1 g/dL (6.4-8.2)
[2024-10-25 05:42] VITALS: BP 144/95
[2024-10-25] MEDS ORDERED: Metoclopramide HCl 5MG / ML 2ML Vial IV PRN ×2 (07:10→09:05)
--- NOTE | 2024-10-25 07:32 | NUR ---
SHIFT SUMMARY; PATIENT AWAKE MOST OF THE NIGHT. UP TO SHOWER FOR SOME NAUSE RELIEF. CBG FLUTUATED BETWEEN REG AND LOW. EMESIS AND ABD PAIN ALL NIGHT TELE SR 77.
[2024-10-25 08:02] VITALS: BP 151/92
[2024-10-25] MEDS ORDERED: Diazepam 5 MG / ML 2ML SYR IV ONE (10:00)
[2024-10-25] MEDS ORDERED: LORazepam 2 MG / ML 10ML Vial IV ONE (10:00)
[2024-10-25] MEDS ORDERED: LORazepam 2 MG / ML 10ML Vial IV PRN (10:00)
[2024-10-25] MEDS ORDERED: Metoclopramide HCl 5MG / ML 2ML Vial IV SCH (12:00)
[2024-10-25] MEDS ORDERED: Insulin Human Lispro 100 Units/ML 3ML Syringe SC SCH ×2 (12:00→16:00)
[2024-10-25 16:03] VITALS: BP 154/91
--- NOTE | 2024-10-25 18:40 | NUR ---
SHIFT SUMMARY PT A&OX4, VSS, RA, TELE ORDER DC TODAY WAS SR IN 70S PRIOR. CONSTANT NAUSEA AND FREQUENT VOMITING CONTINUED THROUGHOUT SHIFT. PT TOLERATED CLEAR LIQUID DIET. NO COMPLAINTS OF PAIN. PT STATES HOT SHOWER HELPS WITH NAUSEA. LR CONTINUOUS AT 100ML/HR. CALL LIGHT IN REACH.
[2024-10-25 21:14] VITALS: BP 148/125
[2024-10-25] MEDS ORDERED: Diazepam 5 MG / ML 2ML SYR IV PRN ×2 (22:00→23:00)
--- NOTE | 2024-10-26 07:36 | NUR ---
SHIFT SUMMARY AT START OF SHIFT, PT IN SHOWER. PT OUT OF SHOWER AND BACK IN BED APPROX 2100. PT HAS BEEN VOMITING PROFUSELY EVER SINCE. MEDICATED PER EMAR FOR N/V SEVERAL TIMES THROUGH SHIFT. PT GOT APPROX. 1.5 HRS UNINTERRUPTED SLEEP. PT WOKE VOMITING MORE. PT IV INFILTRATED AND IS LEAKING. INFORMED DAY SHIFT NURSE THAT IV WILL NEED TO BE PULLED AND RESTARTED.
[2024-10-26 07:44] VITALS: BP 170/108
[2024-10-26] MEDS ORDERED: Insulin Human Lispro 100 Units/ML 3ML Syringe SC SCH ×2 (08:30→12:30)
[2024-10-26 17:13] VITALS: BP 178/104
[2024-10-26 17:16] VITALS: BP 166/97
--- NOTE | 2024-10-26 17:34 | NUR ---
shift summary pt cont level of care. pt noted to be a&o x4 and ind in room. pt cont to have n/v and has been medicated per emar. pt noted to have a low grade temp today at 99.4 and order was received for apap and fever resolved. pt noted to have several loose stools this shift. provider notifed and has placed an order for gi panel awaiting sample from pt. pt had a ct abd done this shift and ct noted to show colitis. pt cont to remain on a clear liquid diet as he thats all he can tolerate at this time. pt cont with q6hr acc checks and insulin in dosed per carb count along with sliding scale. pt noted to take about 2 hours to consume meals and insulin has been dosed according to blood glucose levels/carb count consumed.
[2024-10-26 20:04] VITALS: BP 181/101
[2024-10-26] MEDS ORDERED: Metoclopramide HCl 5MG / ML 2ML Vial IV SCH (21:00)
[2024-10-27 04:06] VITALS: BP 154/88
--- NOTE | 2024-10-27 05:42 | NUR ---
SHIFT SUMMARY PATIENT IS ALERT AND ORIENTED. PATIENT HAS HAD NO ACUTE EVENTS THIS SHIFT. VITAL SIGNS REVIEWED. PATIENT HAS BEEN IND IN ROOM. PATIENT HAS BEEN MEDICATED FOR PAIN AND NAUSEA/VOMITTING THIS SHIFT PER EMAR. PATIENT HAS BEEN ON CONT FLUIDS THIS SHIFT. PATIENT HAS BEEN ON Q4 CBG THIS SHIFT AND MEDICATED PER EMAR. BED IN LOCKED AND LOWEST POSITION. CALL LIGHT IN PLACE.
[2024-10-27 07:48] VITALS: BP 141/102
[2024-10-27 10:53] LABS: BASOPHILS ABSOLUTE AUTO 0.03 K/mm3 (0.00-0.23); BASOPHILS PERCENT AUTO 0 % (0-2); EOSINOPHILS ABSOLUTE AUTO 0.27 K/mm3 (0.00-0.68); EOSINOPHILS PERCENT AUTO 3 % (0-6); Hematocrit 32.5 % (37.0-53.0); Hemoglobin 11.2 g/dL (13.5-17.5); IMMATURE GRAN ABSOLUTE AUTO 0.02 K/mm3 (0.00-0.10); IMMATURE GRAN PERCENT AUTO 0 % (0-1); LYMPHOCYTES ABSOLUTE AUTO 1.87 K/mm3 (0.84-5.20); LYMPHOCYTES PERCENT AUTO 19 % (21-46); MONOCYTES ABSOLUTE AUTO 0.97 K/mm3 (0.16-1.47); MONOCYTES PERCENT AUTO 10 % (4-13); Mean Corpuscular HGB Conc 34.5 g/dL (31.5-36.5); Mean Corpuscular Volume 86 fL (80-100); NEUTROPHILS ABSOLUTE AUTO 6.70 K/mm3 (1.96-9.15); NEUTROPHILS PERCENT AUTO 68 % (41-73); NRBC ABSOLUTE 0.00 K/mm3 (0.00-0.02); NRBC Auto 0.0 /100 WBC (0.0-0.2); Platelet Count 278 K/mm3 (150-400); RDW Coefficient Variation 12.7 % (11.7-14.2); RDW Standard Deviation 39.8 fL (35.1-46.3)
[2024-10-27 11:40] LABS: Anion Gap 3.0 mmol/L (3-11); Blood Urea Nitrogen 16.0 mg/dL (8-24); CO2, Blood 34.0 mmol/L (21-32); Calcium, Blood 8.5 mg/dL (8.5-10.1); Chloride, Blood 98.0 mmol/L (98-108); Creatinine, Blood 1.55 mg/dL (0.60-1.20); Glucose, Blood 390.0 mg/dL (70-99); Potassium, Blood 3.2 mmol/L (3.5-5.5); Sodium, Blood 132.0 mmol/L (136-145)
[2024-10-27 15:41] VITALS: BP 181/105
[2024-10-27] MEDS ORDERED: DULoxetine HCL 60 MG Capsule DR PO SCH (18:00)
[2024-10-27] MEDS ORDERED: Insulin Human Lispro 100 Units/ML 3ML Syringe SC ONE (18:10)
[2024-10-27] MEDS ORDERED: ALBU90OI INH (18:32)
--- NOTE | 2024-10-27 19:28 | NUR ---
SHIFT SUMMARY CLIENT AOX4. MEDICATION COMPLIANT, EXCEPT FOR POTASSIUM INFUSION. CLIENT REFUSED STATING THAT HIS NEPHOLOGIST TOLD HIM NOT TO TAKE POTASSIUM. CLIENT ADVANCE DIET TO FULL LIQUID. LR STILL INFUSING AT 100ML/HOUR. C/O OF PAIN AND NAUSEA MEDICATED PER EMAR WITH SUCCESS. HAD VISITORS AND HIS SERVICE DOG IN ROOM TODAY. BED IS IN LOW POSITION AND CALL LIGHT IS WITHIN REACH
[2024-10-27 20:06] VITALS: BP 163/96
[2024-10-27] MEDS ORDERED: Insulin Human Lispro 100 Units/ML 3ML Syringe SC SCH (21:00)
--- NOTE | 2024-10-28 03:45 | NUR ---
SHIFT SUMMARY PATIENT IS ALERT AND ORIENTED. PATIENT HAS HAD NO ACUTE EVENTS THIS SHIFT. VITAL SIGNS REVIEWED. PATENT HAS BEEN MEDICATED PER ORDER FOR CBG. PATIENT HAS BEEN MEDICATED FOR PAIN, NAUSEA AND VOMITTING PER EMAR. PATIENT HAS HAD FLUIDS INFUSING PER EMAR. PATIENT IS PLANNING ON DISCHARGING LATER TODAY. BED IN LOCKED AND LOWEST POSITION. CALL LIGHT IN PLACE.
[2024-10-28 04:46] VITALS: BP 183/103
--- NOTE | 2024-10-28 11:01 | NUR ---
DISCHARGE SUMMARY PT DISCHARGED HOME, RIDE PROVIDED BY [facility] WITH [facility]. DISCHARGE PACKET REVIEWED WITH PT - NO NEW MEDICATIONS NEEDED TO BE SENT TO PHARMACY. PT DENIES QUESTIONS RE DISHARGE AND FOLLOW UP INSTRUCTIONS. IV REMOVED AND SITE APPEARS WNL. PT AMBULATED INDEPENDENTLY TO ELEVATOR TO 2ND FLOOR PATIENT ENTRANCE. PT REPORTS HAVING ALL BELONGINGS.
[2024-10-28 12:19] LABS: Albumin, Blood 3.1 g/dL (3.4-5.0); Anion Gap 12 mmol/L (3-11); Blood Urea Nitrogen 15 mg/dL (8-24); CO2, Blood 30 mmol/L (21-32); Calcium, Blood 9.0 mg/dL (8.5-10.1); Chloride, Blood 104 mmol/L (98-108); Creatinine, Blood 1.39 mg/dL (0.60-1.20); Glucose, Blood 112 mg/dL (70-99); Phosphorus, Blood 3.4 mg/dL (2.5-4.9); Potassium, Blood 3.7 mmol/L (3.5-5.5); Sodium, Blood 142 mmol/L (136-145)
== END 2024-10-28 10:54 | disposition home or self-care (01) | DRG 74 ==
LOC: ER 20:40 → SURS 20:41 → ERHOLD 20:41 → SURS 10-24 05:31 → MEDS 10-24 14:46 → SURS 10-24 14:47 → MEDS 10-24 21:44
PROVIDERS: Family Medicine; Physician Assistant; ADMIT Internal Medicine
DX: E10.43 Type 1 diabetes mellitus with diabetic autonomic (poly)neuropathy (principal); E87.1 Hypo-osmolality and hyponatremia; E86.0 Dehydration; K31.84 Gastroparesis; F12.90 Cannabis use, unspecified, uncomplicated; N18.30 Chronic kidney disease, stage 3 unspecified; E10.65 Type 1 diabetes mellitus with hyperglycemia; E10.22 Type 1 diabetes mellitus with diabetic chronic kidney disease; I12.9 Hypertensive chronic kidney disease with stage 1 through stage 4 chronic kidney disease, or unspecified chronic kidney disease; G40.909 Epilepsy, unspecified, not intractable, without status epilepticus; K52.9 Noninfective gastroenteritis and colitis, unspecified; R11.2 Nausea with vomiting, unspecified; E87.6 Hypokalemia; Z87.891 Personal history of nicotine dependence; Z79.4 Long term (current) use of insulin; Z79.899 Other long term (current) drug therapy; Z88.0 Allergy status to penicillin; Z88.8 Allergy status to other drugs, medicaments and biological substances; Z91.012 Allergy to eggs; Z91.018 Allergy to other foods; Z91.030 Bee allergy status; Z86.73 Personal history of transient ischemic attack (TIA), and cerebral infarction without residual deficits
CPT/HCPCS: 36415; 36416; 74177; 80048; 80053; 80069; 81001; 82803; 82947; 83036; 83690; 83880; 85025; 93005; 93010; 96361; 96365; 96374; 96375; 96376; 99284-25; 99285-25; A9270; G0378; J0696; J0780; J1630; J1650; J1815; J2405; J2470; J2765; J3010; J3360; J7030; J7120; Q9967

== ENCOUNTER → 2024-11-13 | Outpatient (CLI) | payer OTHER ==
[~2024-11-13] MED LIST changes: +Adderall Xr 5 MG5 MG PO; +QUETIAPINE FUMA5012 PO; +REGLAN1013 PO
[2024-11-13 13:25] LABS: Microalbumin, Urine Quant. 941.0 mg/L (0.000-20.000); Protein, Urine Quantitative 115.4 mg/dL (0.0-11.9)
== END | disposition home or self-care (01) ==
LOC: LAB SHORT 10:26 → LAB 10:26 → LAB FUT 11-10 17:00
PROVIDERS: Internal Medicine Nephrology
DX: N18.2 Chronic kidney disease, stage 2 (mild) (principal); D63.1 Anemia in chronic kidney disease; N25.81 Secondary hyperparathyroidism of renal origin; E55.9 Vitamin D deficiency, unspecified; E78.00 Pure hypercholesterolemia, unspecified; R76.9 Abnormal immunological finding in serum, unspecified; R94.5 Abnormal results of liver function studies
CPT/HCPCS: 82043; 82570; 84156

== ENCOUNTER → 2025-01-15 | Outpatient (CLI) | payer OTHER ==
[~2025-01-15] MED LIST changes: +AMLO10 PO; +AMPDEX5 PO; +ONDA4ODT MM; +SUMA25 PO; +TRANSDERM-SCOP1 EA13 TD
== END ==
LOC: LAB SHORT 14:59 → LAB 14:59
DX: T14.8XXA Other injury of unspecified body region, initial encounter (principal)
CPT/HCPCS: 87070; 87075; 87077; 87147; 87186; 87205

== ENCOUNTER 2025-03-15 15:35 | Inpatient (IN) | payer OTHER ==
[~2025-03-15] VITALS: Ht 188 cm; Wt 63.7 kg
[2025-03-15] VITALS (16 sets, daily range): BP systolic 128–167; BP diastolic 82–99
[2025-03-15] MEDS ORDERED: NS 1,000 ML IV SCH ×2 (15:45→16:35)
[2025-03-15 15:56] LABS: pH Blood Venous 7.49 (7.34-7.37)
[2025-03-15 15:58] LABS: BASOPHILS ABSOLUTE AUTO 0.01 K/mm3 (0.00-0.23); BASOPHILS PERCENT AUTO 0 % (0-2); EOSINOPHILS ABSOLUTE AUTO 0.01 K/mm3 (0.00-0.68); EOSINOPHILS PERCENT AUTO 0 % (0-6); Hematocrit 35.7 % (37.0-53.0); Hemoglobin 11.6 g/dL (13.5-17.5); IMMATURE GRAN ABSOLUTE AUTO 0.07 K/mm3 (0.00-0.10); IMMATURE GRAN PERCENT AUTO 0 % (0-1); LYMPHOCYTES ABSOLUTE AUTO 0.69 K/mm3 (0.84-5.20); LYMPHOCYTES PERCENT AUTO 4 % (21-46); MONOCYTES ABSOLUTE AUTO 0.90 K/mm3 (0.16-1.47); MONOCYTES PERCENT AUTO 5 % (4-13); Mean Corpuscular HGB Conc 32.5 g/dL (31.5-36.5); Mean Corpuscular Volume 89 fL (80-100); NEUTROPHILS ABSOLUTE AUTO 15.49 K/mm3 (1.96-9.15); NEUTROPHILS PERCENT AUTO 90 % (41-73); NRBC ABSOLUTE 0.00 K/mm3 (0.00-0.02); NRBC Auto 0.0 /100 WBC (0.0-0.2); Platelet Count 351 K/mm3 (150-400); RDW Coefficient Variation 13.9 % (11.7-14.2); RDW Standard Deviation 45.1 fL (35.1-46.3)
[2025-03-15 16:14] LABS: Source, Urine Clean Catch
[2025-03-15 16:18] LABS: Bilirubin, Urine Neg (Neg); Glucose Qualitative, Urine 4+ (Neg); Ketones, Urine 2+ (Neg); Leukocyte Esterase, Urine Neg (Neg); Protein, Urine 2+ (Neg); Specific Gravity, Urine 1.010 (1.003-1.022); Urobilinogen, Urine NORM (Normal)
[2025-03-15 16:29] LABS: Alanine Aminotransfer (ALT/SGP 22.0 U/L (12-78); Albumin, Blood 4.4 g/dL (3.4-5.0); Albumin/Globulin Ratio 1.3 (0.8-1.8); Anion Gap 27.0 mmol/L (3-11); Aspartate Aminotrans (AST/SGOT 20.0 U/L (12-37); Bilirubin, Total 1.0 mg/dL (0.1-1.0); Blood Urea Nitrogen 61.0 mg/dL (8-24); CO2, Blood 17.0 mmol/L (21-32); Calcium, Blood 8.8 mg/dL (8.5-10.1); Chloride, Blood 75.0 mmol/L (98-108); Color, Urine Pale Yellow (P-Yellow); Creatinine, Blood 3.74 mg/dL (0.60-1.20); Globulin, Blood 3.5 g/dL (2.2-4.0); Glucose, Blood 1467.0 mg/dL (70-99); Potassium, Blood 4.5 mmol/L (3.5-5.5); Sodium, Blood 114.0 mmol/L (136-145); Total Protein, Blood 7.9 g/dL (6.4-8.2)
[2025-03-15 16:30] LABS: White Blood Cells, Urine 0-2 /hpf (0-5)
[2025-03-15] MEDS ORDERED: Ondansetron HCl 2 MG / ML 2ML Vial IV ONE (16:50)
[2025-03-15] MEDS ORDERED: Insulin Human Regular 100 UNIT in NS 100 ML IV SCH (16:50)
[2025-03-15] MEDS ORDERED: FLU VACC TS2025-26(6MOS UP)/PF 45 MCG/0.5 ML SYRINGE IM SCH (17:20)
[2025-03-15] MEDS ORDERED: Ondansetron HCl 2 MG / ML 2ML Vial IV PRN (17:20)
[2025-03-15] MEDS ORDERED: Labetalol HCL 5 MG/ML 4ML Injection (Single Dose) IV PRN (17:40)
[2025-03-15 18:16] LABS: Glucose, Blood 1352 mg/dL (70-99)
--- NOTE | 2025-03-15 19:06 | NUR ---
SUMMARY PT ARRIVED TO ICU VIA GURNEY, AMBULATES TO ICU BED. PT A&OX4, AGITATED BUT COMPLIANT WITH CARE. FREQUENT VOMITING, MEDICATED WITH ZOFRAN AND PHENERGAN WITH INSULIN GTT INFUSING @ 3.3U/HR & LR @ 200ML/HR. SINUS TACH ON THE MONITOR. SBP <180, PT UNABLE TO TAKE PO ANTIHYPERTENSIVES. USING URINAL INDEPENDENTLY. NO OTHER COMPLAINTS FROM PATIENT.
[2025-03-15 19:09] LABS: Glucose, Blood 1242 mg/dL (70-99)
[2025-03-15 19:31] LABS: Anion Gap 24.0 mmol/L (3-11); Blood Urea Nitrogen 61.0 mg/dL (8-24); CO2, Blood 21.0 mmol/L (21-32); Calcium, Blood 8.9 mg/dL (8.5-10.1); Chloride, Blood 81.0 mmol/L (98-108); Creatinine, Blood 3.69 mg/dL (0.60-1.20); Glucose, Blood 1224.0 mg/dL (70-99); Potassium, Blood 3.9 mmol/L (3.5-5.5); Sodium, Blood 122.0 mmol/L (136-145)
--- NOTE | 2025-03-15 20:18 | NUR ---
ASSUMPTION OF CARE: ASSUMED CARE OF PT AT 1900 WITH CHRIS SAENZ. PT ALERT AND ORIENTED. FOLLOWS DIRECTION AND MAKES NEEDS KNOWN. PT ON RA WITH SPO2 >94% DENIES SOB. LUNGS CLEAR T/O. ON LEAD TINNER IN SR WITH HR 90'S. SBP 140-160'S, DENIES CP. PT HAVING EPISODES OF NAUSEA BUT NO VOMITING. PT ON INSULIN GTT AT 3.2 UNITS/HR WITH LR INFUSING AT 200 ML/HR. PIV TO LFA AND JANIS BOTH PATENT. USING URINAL IND AND TURNING IN BED IND. BED LOCKED, CALL LIGHT IN REACH.
[2025-03-15 20:40] LABS: Glucose, Blood 1029 mg/dL (70-99)
[2025-03-15] MEDS ORDERED: Metoclopramide HCl 5MG / ML 2ML Vial IV PRN (21:10)
[2025-03-15 21:26] LABS: Glucose, Blood 935 mg/dL (70-99)
[2025-03-15 22:28] LABS: Glucose, Blood 762 mg/dL (70-99)
[2025-03-15] MEDS ORDERED: FentaNYL Citrate 50 MCG/ML 2 ML Injection IV PRN (23:10)
[2025-03-15 23:38] LABS: Anion Gap 14.0 mmol/L (3-11); Blood Urea Nitrogen 59.0 mg/dL (8-24); CO2, Blood 26.0 mmol/L (21-32); Calcium, Blood 9.1 mg/dL (8.5-10.1); Chloride, Blood 96.0 mmol/L (98-108); Creatinine, Blood 3.48 mg/dL (0.60-1.20); Glucose, Blood 662.0 mg/dL (70-99); Potassium, Blood 4.1 mmol/L (3.5-5.5)
[2025-03-15 23:39] LABS: Sodium, Blood 132.0 mmol/L (136-145)
[2025-03-16] VITALS (24 sets, daily range): BP systolic 118–191; BP diastolic 82–121
[2025-03-16 03:42] LABS: Anion Gap 12.0 mmol/L (3-11); Blood Urea Nitrogen 52.0 mg/dL (8-24); CO2, Blood 27.0 mmol/L (21-32); Calcium, Blood 9.4 mg/dL (8.5-10.1); Chloride, Blood 105.0 mmol/L (98-108); Creatinine, Blood 3.19 mg/dL (0.60-1.20); Glucose, Blood 228.0 mg/dL (70-99); Magnesium, Blood 2.6 mg/dL (1.6-2.4); Phosphorus, Blood 3.2 mg/dL (2.5-4.9); Potassium, Blood 3.5 mmol/L (3.5-5.5); Sodium, Blood 140.0 mmol/L (136-145)
[2025-03-16] MEDS ORDERED: D5W-1/2NS 1,000 ML IV SCH (03:45)
--- NOTE | 2025-03-16 05:45 | NUR ---
SHIFT SUMM: PT REMAINS ON INSULIN DRIP AND Q1 BS CHECKS HAVE DEMETRI COMPLETED (SEE FLOWSHEETS FOR TITRATIONS). PT CONTINUES TO HAVE NAUSEA AND HAS BEEN MEDICATED PER EMAR. PT A&OX4 AND IND WITH URINAL USE. JANIS PG PATENT AND PIV'S. SPO2 > 96% ON RA WITH SOME SLEEP APNEA THIS SHIFT BUT QUICK RECOVERY. HR IN THE 80-90'S AND SBP'S IN 140'S-160'S. PT HAS BED LOCKED AND CALL LIGHT IN REACH. PT ABLE TO CALL TO MAKE NEEDS KNOWN.
[2025-03-16 07:23] LABS: Anion Gap 12.0 mmol/L (3-11); Blood Urea Nitrogen 45.0 mg/dL (8-24); CO2, Blood 25.0 mmol/L (21-32); Calcium, Blood 9.4 mg/dL (8.5-10.1); Chloride, Blood 106.0 mmol/L (98-108); Creatinine, Blood 2.97 mg/dL (0.60-1.20); Glucose, Blood 186.0 mg/dL (70-99); Potassium, Blood 3.4 mmol/L (3.5-5.5); Sodium, Blood 140.0 mmol/L (136-145)
[2025-03-16] MEDS ORDERED: Albuterol HFA200 ACT/6.7 GM INH INH PRN (07:30)
[2025-03-16] MEDS ORDERED: Enoxaparin 30 MG/0.3 ML SYR SC SCH (09:00)
[2025-03-16] MEDS ORDERED: Enoxaparin 40 MG/0.4 ML SYR SC SCH (09:30)
--- NOTE | 2025-03-16 10:22 | NUR ---
CALLED DR. GUTIERREZ AND CLARIFIED LANTUS ORDER. SHE WANTS A DOSE NOW AND AT 1800. MAR UPDATED.
[2025-03-16] MEDS ORDERED: Insulin Glargine 100 Unit/ML 3 ML SYR SC SCH ×2 (10:25→18:00)
[2025-03-16] MEDS ORDERED: Insulin Glargine-Yfgn 100 Unit/mL 3 ML SYR SC SCH (11:00)
[2025-03-16] MEDS ORDERED: Insulin Human Lispro 100 Units/ML 3ML Syringe SC SCH ×2 (11:30)
[2025-03-16 15:57] LABS: Anion Gap 13.0 mmol/L (3-11); Blood Urea Nitrogen 37.0 mg/dL (8-24); CO2, Blood 23.0 mmol/L (21-32); Calcium, Blood 8.9 mg/dL (8.5-10.1); Chloride, Blood 107.0 mmol/L (98-108); Creatinine, Blood 2.47 mg/dL (0.60-1.20); Glucose, Blood 211.0 mg/dL (70-99); Potassium, Blood 3.7 mmol/L (3.5-5.5); Sodium, Blood 139.0 mmol/L (136-145)
[2025-03-16] MEDS ORDERED: LURASIDONE 60 MG TAB PO SCH (18:00)
--- NOTE | 2025-03-16 18:37 | NUR ---
SUMMARY PT A/O X4. SLEPT MOST OF THE DAY. TRANSITIONED OFF THE INSULIN GTT THIS AM. ATE SOME SOUP AT LUNCH AND KEPT IT DOWN. KEEPING FLUIDS DOWN WELL PO MEDS. CHANGED TO MEDICAL STATUS THIS EVENING. USES CALL LIGHT APPROPRIATLEY.
--- NOTE | 2025-03-16 20:27 | NUR ---
ASSUMED CARE AT 1900 PATIENT IS ALERT AND ORIENTED X4. IN ROOM COUGHING AND NAUSEOUS, SMALL AMOUNT OF SPUTUM/EMESIS, MEDICATED PER EMAR FOR NAUSEA. PATIENT DENIES BEING ABLE TO TAKE PO MEDS AT THIS TIME, CBG 146 AND PATIENT UNABLE TO EAT, WILL RECHECK CBG IN AN HOUR AND MEDICATE WITH INSULIN IF NEEDED. SP02 100% ON 2L NC, PT STATES SOME SOB, LS CLEAR. INDEPENDENT IN BED. USES URINAL. CALL LIGHT IN REACH
[2025-03-16] MEDS ORDERED: DULoxetine HCL 60 MG Capsule DR PO SCH (21:00)
[2025-03-17 03:19] LABS: BASOPHILS ABSOLUTE AUTO 0.03 K/mm3 (0.00-0.23); BASOPHILS PERCENT AUTO 0 % (0-2); EOSINOPHILS ABSOLUTE AUTO 0.02 K/mm3 (0.00-0.68); EOSINOPHILS PERCENT AUTO 0 % (0-6); Hematocrit 35.0 % (37.0-53.0); Hemoglobin 11.9 g/dL (13.5-17.5); IMMATURE GRAN ABSOLUTE AUTO 0.09 K/mm3 (0.00-0.10); IMMATURE GRAN PERCENT AUTO 0 % (0-1); LYMPHOCYTES ABSOLUTE AUTO 2.30 K/mm3 (0.84-5.20); LYMPHOCYTES PERCENT AUTO 11 % (21-46); MONOCYTES ABSOLUTE AUTO 1.35 K/mm3 (0.16-1.47); MONOCYTES PERCENT AUTO 7 % (4-13); Mean Corpuscular HGB Conc 34.0 g/dL (31.5-36.5); Mean Corpuscular Volume 87 fL (80-100); NEUTROPHILS ABSOLUTE AUTO 16.30 K/mm3 (1.96-9.15); NEUTROPHILS PERCENT AUTO 81 % (41-73); NRBC ABSOLUTE 0.00 K/mm3 (0.00-0.02); NRBC Auto 0.0 /100 WBC (0.0-0.2); Platelet Count 290 K/mm3 (150-400); RDW Coefficient Variation 13.6 % (11.7-14.2); RDW Standard Deviation 43.6 fL (35.1-46.3)
[2025-03-17 04:00] VITALS: BP 137/99
[2025-03-17 04:17] LABS: Alanine Aminotransfer (ALT/SGP 21.0 U/L (12-78); Albumin, Blood 3.7 g/dL (3.4-5.0); Albumin/Globulin Ratio 1.0 (0.8-1.8); Anion Gap 7.0 mmol/L (3-11); Aspartate Aminotrans (AST/SGOT 13.0 U/L (12-37); Bilirubin, Total 0.6 mg/dL (0.1-1.0); Blood Urea Nitrogen 29.0 mg/dL (8-24); CO2, Blood 27.0 mmol/L (21-32); Calcium, Blood 9.1 mg/dL (8.5-10.1); Chloride, Blood 108.0 mmol/L (98-108); Creatinine, Blood 2.13 mg/dL (0.60-1.20); Globulin, Blood 3.6 g/dL (2.2-4.0); Glucose, Blood 169.0 mg/dL (70-99); Potassium, Blood 4.1 mmol/L (3.5-5.5); Sodium, Blood 138.0 mmol/L (136-145); Total Protein, Blood 7.3 g/dL (6.4-8.2)
--- NOTE | 2025-03-17 06:20 | NUR ---
SHIFT SUMMARY PATIENT REMAINS ALERT AND ORIENTED X4. NAUSEA THROUGH THE NIGHT, PATIENT ABLE TO TOLERATE SOME DRINKS AND SNACKS BUT REFUSED ALL PO MEDICATIONS. MEDICATED WITH IV MEDS FOR NAUSEA PER EMAR. GLUCOSE DID DROP TO 59 OVERNIGHT, PATIENT ABLE TO DRINK SOME APPLE JUICE, GLUCOSE 169 THIS MORNING. SP02 100% ON 2L NC WHILE SLEEPING. HR SR 80s, BP STABLE, DENIES CP/PRESSURE. USES URINAL. MEDICATED FOR BACK PAIN ONCE THIS SHIFT. CALL LIGHT IN REACH
--- NOTE | 2025-03-17 07:43 | NUR ---
ASSUMPTION OF CARE ASSUMED CARE OF PATIENT AT APPROX 0700. PATIENT ALERT AND ORIENTED AND ABLE TO MAKE NEEDS KNOWN. PATIENT REPORTS NAUSEA AND WAS MEDICATED WITH REGLAN PER EMAR. HR SINUS IN THE 80S-90S. BP STABLE WITH MAPS >65. PATIENT ON RA WITH SPO2 > 95%. PG TO JANIS PATENT AND SALINE LOCKED. PIVS TO RIGHT ARM AND LEFT FA PATENT AND SALINE LOCKED. CALL LIGHT IN REACH. BED IN LOWEST POSITION.
[2025-03-17 08:00] VITALS: BP 145/91
[2025-03-17] MEDS ORDERED: Insulin Human Lispro 100 Units/ML 3ML Syringe SC SCH ×2 (11:30→16:30)
[2025-03-17 12:00] VITALS: BP 133/84
[2025-03-17] MEDS ORDERED: Ondansetron HCl 2 MG / ML 2ML Vial IV SCH (12:00)
[2025-03-17] MEDS ORDERED: Insulin Glargine 100 Unit/ML 3 ML SYR SC SCH (18:00)
--- NOTE | 2025-03-17 18:29 | NUR ---
DREDGE OPERATOR/SHIFT SUMMARY NOTE: RECIEVED REPORT FROM [place]STON RN IN ICU PT TRANSFER FROM ICU VIA WHEELCHAIR, A&Ox4, ON RA, INDEPENDENT IN ROOM, USES BEDSIDE URINAL, BEDSIDE AT THE LOWEST POSITION, CALL LIGHT WITHIN REACH
[2025-03-17 19:37] VITALS: BP 139/87
--- NOTE | 2025-03-17 22:32 | NUR ---
CALLED HOSPITALIST INFORMED HIM OF PATIENT'S CBG. INFORMED HIM THAT DAY SHIFT REPORTS POOR APPETITE WITH LITTLE INTAKE. HUMALOG HELD PER ORDER.
[2025-03-18 03:32] VITALS: BP 135/90
--- NOTE | 2025-03-18 04:20 | NUR ---
Shift Summary: AOx4 respirations clear & non-labored VS WNL, speech clear , OOB and ambulated independently to bathroom and took a shower on his own. Denies nausea, minimal po intake - consumed a sandwich + a couple of cups of chicken broth. Pt. requested for analgesia earlier; comic book writer offered Tylenol 650 mg as ordered PRN, pt. refused and asked for Fentanyl instead. Welt Maker explained that it is 0330, and the Hospitalist on duty will hesitate to order such potent controlled substance, he will need to wait for the morning med. team for that med order. Pt. verbalized his understanding & acceptance. BG levels are are within acceptable limits; standing order of 6 U of Humalog scheduled for 2100 was held by . Pt affect remains to be flat & stoic, but more interactive. Pt. stable.
[2025-03-18 06:01] LABS: BASOPHILS ABSOLUTE AUTO 0.05 K/mm3 (0.00-0.23); BASOPHILS PERCENT AUTO 0 % (0-2); EOSINOPHILS ABSOLUTE AUTO 0.27 K/mm3 (0.00-0.68); EOSINOPHILS PERCENT AUTO 1 % (0-6); Hematocrit 32.9 % (37.0-53.0); Hemoglobin 11.1 g/dL (13.5-17.5); IMMATURE GRAN ABSOLUTE AUTO 0.10 K/mm3 (0.00-0.10); IMMATURE GRAN PERCENT AUTO 1 % (0-1); LYMPHOCYTES ABSOLUTE AUTO 1.80 K/mm3 (0.84-5.20); LYMPHOCYTES PERCENT AUTO 9 % (21-46); MONOCYTES ABSOLUTE AUTO 1.45 K/mm3 (0.16-1.47); MONOCYTES PERCENT AUTO 7 % (4-13); Mean Corpuscular HGB Conc 33.7 g/dL (31.5-36.5); Mean Corpuscular Volume 87 fL (80-100); NEUTROPHILS ABSOLUTE AUTO 16.58 K/mm3 (1.96-9.15); NEUTROPHILS PERCENT AUTO 82 % (41-73); NRBC ABSOLUTE 0.00 K/mm3 (0.00-0.02); NRBC Auto 0.0 /100 WBC (0.0-0.2); Platelet Count 244 K/mm3 (150-400); RDW Coefficient Variation 13.2 % (11.7-14.2); RDW Standard Deviation 41.6 fL (35.1-46.3)
[2025-03-18 06:45] LABS: Anion Gap 8.0 mmol/L (3-11); Blood Urea Nitrogen 20.0 mg/dL (8-24); CO2, Blood 26.0 mmol/L (21-32); Calcium, Blood 9.0 mg/dL (8.5-10.1); Chloride, Blood 103.0 mmol/L (98-108); Creatinine, Blood 1.94 mg/dL (0.60-1.20); Glucose, Blood 122.0 mg/dL (70-99); Potassium, Blood 3.9 mmol/L (3.5-5.5); Sodium, Blood 133.0 mmol/L (136-145)
[2025-03-18 07:53] VITALS: BP 152/92
[2025-03-18 12:15] VITALS: BP 145/76
[2025-03-18] MEDS ORDERED: METO10 PO (14:28)
--- NOTE | 2025-03-18 15:30 | NUR ---
DISCHARGE NOTE PT DISCHARGED TO HOME, PICKED UP BY CAREGIVER. HARD SCRIPT PROVIDED TO PT FOR GLUCOMETER, LANCETS, AND STRIPS FOR HOME BLOOD SUGAR CHECKS. [facility] PT FINE WITH THIS PLAN. PG REMOVED. DISCHARGE INFORMATION REVIEWED WITH THE PT. PERSONAL BELONGINGS RETURNED. EDUCATION ON MARIJUANA CESSATION DISCUSSED ALONG WITH BLOOD SUGAR MANAGEMENT. ADAPT LIQUOR RECTIFIER MADE AWARE OF ALL DISCHARGE PLAN.
[2025-03-18] MEDS ORDERED: Insulin Glargine-Yfgn 100 Unit/mL 3 ML SYR SC SCH ×2 (18:00)
== END 2025-03-18 15:30 | disposition home or self-care (01) | DRG 638 ==
LOC: ER 15:35 → ICUE 17:17 → MEDS 03-17 18:10
PROVIDERS: Physician Assistant; Student in an Organized Health Care Education/Training Program; ADMIT Student in an Organized Health Care Education/Training Program
DX: E10.10 Type 1 diabetes mellitus with ketoacidosis without coma (principal); N17.9 Acute kidney failure, unspecified; E10.22 Type 1 diabetes mellitus with diabetic chronic kidney disease; N18.31 Chronic kidney disease, stage 3a; E10.43 Type 1 diabetes mellitus with diabetic autonomic (poly)neuropathy; K31.84 Gastroparesis; R11.16 Cannabis hyperemesis syndrome; I12.9 Hypertensive chronic kidney disease with stage 1 through stage 4 chronic kidney disease, or unspecified chronic kidney disease; F32.9 Major depressive disorder, single episode, unspecified; K21.9 Gastro-esophageal reflux disease without esophagitis; H54.62 Unqualified visual loss, left eye, normal vision right eye; F41.9 Anxiety disorder, unspecified; F42.9 Obsessive-compulsive disorder, unspecified; D63.1 Anemia in chronic kidney disease; R56.9 Unspecified convulsions; T38.3X6A Underdosing of insulin and oral hypoglycemic [antidiabetic] drugs, initial encounter; Z86.14 Personal history of Methicillin resistant Staphylococcus aureus infection; Z91.138 Patient's unintentional underdosing of medication regimen for other reason; Z87.891 Personal history of nicotine dependence; Z86.73 Personal history of transient ischemic attack (TIA), and cerebral infarction without residual deficits; Z88.0 Allergy status to penicillin; Z88.8 Allergy status to other drugs, medicaments and biological substances; Z79.4 Long term (current) use of insulin
CPT/HCPCS: 36415; 71045; 76770; 80048; 80053; 81001; 82010; 82570; 82803; 82947; 83690; 83735; 84100; 84300; 85025; 87086; 93005; 93010; 94760; 94762; 96374; 99285-25; A9270; J1815; J2405; J2765; J3010; J3480; J7030; J7042; J7050; J7120

== ENCOUNTER 2025-04-14 13:02 | Observation (INO) | payer OTHER ==
[~2025-04-14] VITALS: Ht 188 cm; Wt 68.0 kg
[2025-04-14] MEDS ORDERED: NS 1,000 ML IV SCH ×2 (13:15→16:20)
[2025-04-14] MEDS ORDERED: Ondansetron HCl 2 MG / ML 2ML Vial IV ONE (13:15)
[2025-04-14 13:31] LABS: pH Blood Venous 7.61 (7.34-7.37)
[2025-04-14 13:39] LABS: BASOPHILS ABSOLUTE AUTO 0.03 K/mm3 (0.00-0.23); BASOPHILS PERCENT AUTO 0 % (0-2); EOSINOPHILS ABSOLUTE AUTO 0.02 K/mm3 (0.00-0.68); EOSINOPHILS PERCENT AUTO 0 % (0-6); Hematocrit 40.1 % (37.0-53.0); Hemoglobin 13.6 g/dL (13.5-17.5); IMMATURE GRAN ABSOLUTE AUTO 0.04 K/mm3 (0.00-0.10); IMMATURE GRAN PERCENT AUTO 0 % (0-1); LYMPHOCYTES ABSOLUTE AUTO 3.81 K/mm3 (0.84-5.20); LYMPHOCYTES PERCENT AUTO 23 % (21-46); MONOCYTES ABSOLUTE AUTO 1.53 K/mm3 (0.16-1.47); MONOCYTES PERCENT AUTO 9 % (4-13); Mean Corpuscular HGB Conc 33.9 g/dL (31.5-36.5); Mean Corpuscular Volume 86 fL (80-100); NEUTROPHILS ABSOLUTE AUTO 11.51 K/mm3 (1.96-9.15); NEUTROPHILS PERCENT AUTO 68 % (41-73); NRBC ABSOLUTE 0.00 K/mm3 (0.00-0.02); NRBC Auto 0.0 /100 WBC (0.0-0.2); Platelet Count 345 K/mm3 (150-400); RDW Coefficient Variation 13.9 % (11.7-14.2); RDW Standard Deviation 43.6 fL (35.1-46.3)
[2025-04-14 14:09] LABS: Alanine Aminotransfer (ALT/SGP 17.0 U/L (12-78); Albumin, Blood 4.7 g/dL (3.4-5.0); Albumin/Globulin Ratio 1.1 (0.8-1.8); Anion Gap 15.0 mmol/L (3-11); Aspartate Aminotrans (AST/SGOT 14.0 U/L (12-37); Bilirubin, Total 0.8 mg/dL (0.1-1.0); Blood Urea Nitrogen 49.0 mg/dL (8-24); CO2, Blood 29.0 mmol/L (21-32); Calcium, Blood 10.2 mg/dL (8.5-10.1); Chloride, Blood 90.0 mmol/L (98-108); Creatinine, Blood 2.72 mg/dL (0.60-1.20); Globulin, Blood 4.1 g/dL (2.2-4.0); Glucose, Blood 111.0 mg/dL (70-99); Potassium, Blood 2.8 mmol/L (3.5-5.5); Sodium, Blood 131.0 mmol/L (136-145); Total Protein, Blood 8.8 g/dL (6.4-8.2)
[2025-04-14 14:37] LABS: Source, Urine Clean Catch
[2025-04-14 14:41] LABS: Bilirubin, Urine Neg (Neg); Color, Urine Yellow (P-Yellow); Glucose Qualitative, Urine 2+ (Neg); Ketones, Urine 2+ (Neg); Leukocyte Esterase, Urine Neg (Neg); Protein, Urine 4+ (Neg); Specific Gravity, Urine 1.015 (1.003-1.022); Urobilinogen, Urine NORM (Normal)
[2025-04-14] MEDS ORDERED: Magnesium Sulf 2 GM/Water 50ML 50 ML IV ONE (14:45)
[2025-04-14 14:47] LABS: Red Blood Cells, Urine 0-2 /hpf (0-2); White Blood Cells, Urine 0-2 /hpf (0-5)
[2025-04-14] MEDS ORDERED: Prochlorperazine Edisylate 10 mg Vial IV PRN (16:10)
[2025-04-14] MEDS ORDERED: LORazepam 2 MG/ML 1ML Injection IV PRN (16:10)
[2025-04-14] MEDS ORDERED: FLU VACC TS2025-26(6MOS UP)/PF 45 MCG/0.5 ML SYRINGE IM SCH (16:20)
[2025-04-14] MEDS ORDERED: Pantoprazole Sodium 40 MG Injection IV SCH (16:30)
[2025-04-14] MEDS ORDERED: Metoclopramide HCl 5MG / ML 2ML Vial IV SCH (18:00)
[2025-04-14] MEDS ORDERED: Insulin Human Lispro 100 Units/ML 3ML Syringe SC SCH (18:00)
[2025-04-14] MEDS ORDERED: Insulin Glargine-Yfgn 100 Unit/mL 3 ML SYR SC SCH (21:00)
[2025-04-14 22:32] VITALS: BP 145/101
[2025-04-14 22:39] LABS: Anion Gap 13.0 mmol/L (3-11); Blood Urea Nitrogen 45.0 mg/dL (8-24); CO2, Blood 28.0 mmol/L (21-32); Calcium, Blood 9.4 mg/dL (8.5-10.1); Chloride, Blood 93.0 mmol/L (98-108); Creatinine, Blood 2.81 mg/dL (0.60-1.20); Glucose, Blood 415.0 mg/dL (70-99); Potassium, Blood 3.6 mmol/L (3.5-5.5); Sodium, Blood 130.0 mmol/L (136-145)
--- NOTE | 2025-04-14 23:53 | NUR ---
RN NOTIFIED VINCENT TORREZ OF BLOOD GLUCOSE OF 476. VERBAL ORDER FROM VINCENT TORREZ TO GIVE THE SS ORDERED DOSE OF 10 UNITS OF HUMALOG, ORDER BMP FOR 30 MINS AFTER ADMINISTRATION OF INSULIN AND CHANGE BLOOD GLUCOSE CHECKS TO Q4 HR.
[2025-04-15 00:45] LABS: Anion Gap 12.0 mmol/L (3-11); Blood Urea Nitrogen 48.0 mg/dL (8-24); CO2, Blood 30.0 mmol/L (21-32); Calcium, Blood 8.5 mg/dL (8.5-10.1); Chloride, Blood 93.0 mmol/L (98-108); Creatinine, Blood 2.76 mg/dL (0.60-1.20); Glucose, Blood 431.0 mg/dL (70-99); Potassium, Blood 3.0 mmol/L (3.5-5.5); Sodium, Blood 132.0 mmol/L (136-145)
[2025-04-15] MEDS ORDERED: Insulin Glargine-Yfgn 100 Unit/mL 3 ML SYR SC ONE (00:55)
--- NOTE | 2025-04-15 00:58 | NUR ---
RN NOTIFIED DR. ASHLEY OF PATIENTSS BMP RESULTS- GLUCOSE 431 NEW ORDERS: 6 UNITS OF 6 GLARGINE NOW CHANGE Q6 HUMALOG SS TO Q4 HR HUMALOG SS RN NOTIFIED DR. ASHLEY OF POTASSIUM 3.0 NEW ORDER: POTASSIUM CHLORIDE PO 40 MEQ Q4 FOR 2 DOSES
[2025-04-15 03:59] VITALS: BP 150/113
[2025-04-15] MEDS ORDERED: Insulin Human Lispro 100 Units/ML 3ML Syringe SC SCH ×2 (04:00)
--- NOTE | 2025-04-15 05:11 | NUR ---
PATIENT ADMITTED DURING SHIFT. ALERT AND ORIENTED X4, ABLE TO MAKE NEEDS KNOWN. PATIENT NOT COOPERATIVE WITH CARE. PATIENT REFUSED 2 RN SKIN ASSESSMENT; RN EDUCATED THE PATIENT ON THE REASON FOR THE ASSESSMENT. PATIENT VERBALIZES UNDERSTANDING BUT STILL DECLINES. PATIENT IS Q 4 HR BLOOD GLUCOSE CHECK. RN REPORTED ELEVATED BLOOD PRESSURE TO DR. ASHLEY. PER DOCTOR GABI-NO NEW ORDERS AT THIS TIME. PATIENT USES URINAL. PATIENT 1 ASSIST WITH ACTIVITY DUE TO WEAKNESS. NS RUNNING AT 200 ML/H. TELE IN PLACE-RUNNING SINUS TACH. PATIENT NPO. BED IN LOW POSITION WITH WHEELS LOCKED.CALL LIGHT WITH REACH
[2025-04-15 05:44] LABS: pH Blood Venous 7.45 (7.34-7.37)
--- NOTE | 2025-04-15 06:09 | NUR ---
DISCUSSED WITH DR. ASHLEY THE NPO DIET-PATIENT WAS WONDERING WHY HE WAS NPO. DR. ASHLEY TO PROGRESS TO FULL LIQUID DIET TOLERATED. DR ASHLEY ALSO GAVE TELEPHONE ORDER TO DECREASE FLUIDS TO 125 ML/H.
[2025-04-15 06:14] LABS: BASOPHILS ABSOLUTE AUTO 0.02 K/mm3 (0.00-0.23); BASOPHILS PERCENT AUTO 0 % (0-2); EOSINOPHILS ABSOLUTE AUTO 0.03 K/mm3 (0.00-0.68); EOSINOPHILS PERCENT AUTO 0 % (0-6); Hematocrit 32.5 % (37.0-53.0); Hemoglobin 10.8 g/dL (13.5-17.5); IMMATURE GRAN ABSOLUTE AUTO 0.03 K/mm3 (0.00-0.10); IMMATURE GRAN PERCENT AUTO 0 % (0-1); LYMPHOCYTES ABSOLUTE AUTO 2.88 K/mm3 (0.84-5.20); LYMPHOCYTES PERCENT AUTO 25 % (21-46); MONOCYTES ABSOLUTE AUTO 1.05 K/mm3 (0.16-1.47); MONOCYTES PERCENT AUTO 9 % (4-13); Mean Corpuscular HGB Conc 33.2 g/dL (31.5-36.5); Mean Corpuscular Volume 87 fL (80-100); NEUTROPHILS ABSOLUTE AUTO 7.46 K/mm3 (1.96-9.15); NEUTROPHILS PERCENT AUTO 65 % (41-73); NRBC ABSOLUTE 0.00 K/mm3 (0.00-0.02); NRBC Auto 0.0 /100 WBC (0.0-0.2); Platelet Count 261 K/mm3 (150-400); RDW Coefficient Variation 14.0 % (11.7-14.2); RDW Standard Deviation 44.7 fL (35.1-46.3)
[2025-04-15 06:38] LABS: Anion Gap 10.0 mmol/L (3-11); Blood Urea Nitrogen 45.0 mg/dL (8-24); CO2, Blood 31.0 mmol/L (21-32); Calcium, Blood 8.7 mg/dL (8.5-10.1); Chloride, Blood 100.0 mmol/L (98-108); Creatinine, Blood 2.66 mg/dL (0.60-1.20); Glucose, Blood 155.0 mg/dL (70-99); Magnesium, Blood 3.1 mg/dL (1.6-2.4); Potassium, Blood 3.7 mmol/L (3.5-5.5); Sodium, Blood 137.0 mmol/L (136-145)
[2025-04-15 08:15] VITALS: BP 149/99
[2025-04-15] MEDS ORDERED: Enoxaparin 40 MG/0.4 ML SYR SC SCH (09:00)
[2025-04-15] MEDS ORDERED: Amphet Asp/Amphet/D-Amphet 10 MG CapCR PO SCH (09:00)
[2025-04-15 11:07] VITALS: BP 161/104
[2025-04-15 17:01] VITALS: BP 166/103
--- NOTE | 2025-04-15 17:45 | NUR ---
SHIFT SUMMARY AND DISCHARGE PATIENT ALERT AND INTERACTIVE. PATIENT UP TO SHOWER THIS MORNING TO HELP WITH NAUSEA AND SWEATS. PATIENT REQUESTING TO GO HOME SINCE HE HAS BEEN ABLE TO KEEP LIQUIDS DOWN. DISCHARGE ORDERS PLACED. PATIENT BLOOD SUGAR ELEVATED AT DISCHARGE. PATIENT REQUESTING TO STILL GO HOME. PATIENT STATES HE WILL MONITOR BLOOD SUGAR AND DOSE INSULIN NEEDED. PATIENT INDEPENDENT IN THE ROOM. PATIENT TAKEN OUT VIA WHEELCHAIR. IV'S DC'D PRIOR TO DISCHARGE.
[2025-04-15] MEDS ORDERED: DULoxetine HCL 60 MG Capsule DR PO SCH (21:00)
== END 2025-04-15 17:45 | disposition home or self-care (01) ==
LOC: ER 13:02 → ERHOLD 16:03 → MEDS 16:03
PROVIDERS: Nurse Practitioner Acute Care; Student in an Organized Health Care Education/Training Program; ADMIT Internal Medicine
DX: R11.2 Nausea with vomiting, unspecified (principal); E10.43 Type 1 diabetes mellitus with diabetic autonomic (poly)neuropathy; I12.9 Hypertensive chronic kidney disease with stage 1 through stage 4 chronic kidney disease, or unspecified chronic kidney disease; N18.30 Chronic kidney disease, stage 3 unspecified; E10.22 Type 1 diabetes mellitus with diabetic chronic kidney disease; N17.9 Acute kidney failure, unspecified; E87.6 Hypokalemia; E83.42 Hypomagnesemia; E86.0 Dehydration; Z88.0 Allergy status to penicillin; Z88.8 Allergy status to other drugs, medicaments and biological substances; Z91.0120 Allergy to eggs, unspecified; Z91.018 Allergy to other foods; Z79.4 Long term (current) use of insulin; Z87.891 Personal history of nicotine dependence
CPT/HCPCS: 36415; 71046; 80048; 80053; 81001; 82010; 82803; 82947; 83690; 83735; 85025; 93005; 93010; 96361; 96365; 96368; 96375; 99285-25; A9270; G0378; J0780; J1650; J1790; J1815; J2060; J2405; J2470; J2765; J3475; J3480; J7030; J7050; J7120